=== PATIENT | male | born 1950 | race Hispanic/Latino ===

== ENCOUNTER → 2018-10-15 | Day surgery (SDC) | payer MEDICARE ==
[2018-10-14 12:21] LABS: BASOPHILS % 0.5 % (0.0-1.0); EOSINOPHILS # (AUTO) 0.3 (0.0-0.4); EOSINOPHILS % 3.5 % (0.0-6.0); HEMATOCRIT 31.8 % (38.2-49.6); HEMOGLOBIN 10.3 g/dL (14.0-18.0); LYMPHOCYTES # (AUTO) 0.9 (1.0-3.2); LYMPHOCYTES % 10.9 % (18.0-39.1); MEAN CORPUSCULAR HEMOGLOBIN 28.7 pg (28-32); MEAN CORPUSCULAR HGB CONC 32.4 g/dL (31-35); MEAN CORPUSCULAR VOLUME 88.6 fL (81-99); MONOCYTES # (AUTO) 0.7 (0.2-0.8); NEUTROPHILS # (AUTO) 5.9 (2.1-6.9); NEUTROPHILS % 75.6 % (38.7-80.0); PLATELET COUNT 138 x10e3/uL (140-360); RED BLOOD COUNT 3.59 x10e6/uL (4.3-5.7); RED CELL DISTRIBUTION WIDTH 12.1 % (11.7-14.4)
--- NOTE | 2018-10-14 12:48 | Diagnostic Imaging Report ---
EXAMINATION: CHEST 2 VIEWS INDICATION: Preoperative for circumcision COMPARISON: None FINDINGS: PA and lateral views TUBES and LINES: AICD lead terminates in the right ventricle. LUNGS: Lungs are well inflated. There is no evidence of pneumonia or pulmonary edema. PLEURA: No pleural effusion or pneumothorax. HEART AND MEDIASTINUM: The heart is enlarged. There is mild aortic ectasia with calcifications of the arch. BONES AND SOFT TISSUES: No focal osseous lesions. Mild degenerative changes of the spine. Soft tissues are unremarkable. UPPER ABDOMEN: No free air under the diaphragm. IMPRESSION: Cardiomegaly without vascular congestion. No acute pulmonary process. Signed by: Dr. Brigido Posey MD on 10/14/2018 12:45 PM
[2018-10-14 13:10] LABS: ANION GAP 12.1 mmol/L (8-16); CALCIUM 9.2 mg/dL (8.4-10.2); CREATININE, SERUM 2.19 mg/dL (0.72-1.25); POTASSIUM 4.1 mmol/L (3.5-5.1)
[~2018-10-15] MED LIST: ASPIRIN325 MG PO; BUPIVACAINE 0.25% 30ML SDV INJ ONE; CAPTOPRIL25 MG PO; CEFTRIAXONE SOD 1 GM VIAL ONE; COREG12.5 MG; DEXILANT60 MG; FENTANYL CITRATE/PF 100MCG/2 ML INJ ONE; FERROUS SULFAT325 MG; GABAPENTIN400 MG PO; HYDRALAZINE HCL25 MG PO; ISOSORBIDE1 GM; KETAMINE HCL INJ 50 MG/ML 10 ML VIAL ONE; LASIX40 MG PO; LIDOCAINE HCL 2% LOCAL INJ 5 ML SDV VIAL INJ ONE; MULTI-VITAMIN1 EACH; NORVASC5 MG PO; PLAVIX75 MG PO; PROPOFOL IV EMULSION 10 MG/ML 20 ML VIAL ONE; SEVOFLURANE INHAL SOLN 250 ML PEN BTL ONE; SIMVASTATIN40 MG PO; TRAJENTA; VITAMIN D1000 UNI1 PO
--- OUTSIDE RECORDS SUMMARY | 2018-10-15 06:58 | XMS REPORT | Clinical Summary ---
Author Author [facility] Address Unknown Phone Unavailable Care Team Providers Care Blueprint Clerk Name Role Phone Sharpless PCP Allergies No Known Allergies Medications End Date Status Medication Sig Dispensed Refills Start Date Active aspirin 325 MG Take 325 mg 0 tabletIndications: Stroke by mouth (HCC) daily. Active multivitamin Take 1 tablet 0 tabletIndications: by mouth Diabetes (HCC) daily. Active Vitamin D 1,000 unit Take 2,000 0 CapIndications: Diabetes Units by (HCC) mouth. Takes 2 Active simvastatin (ZOCOR) 40 MG Take 1 tablet 90 tablet 3 tabletIndications: (40 mg total) 5 Hyperlipidemia by mouth nightly. Active carvedilol (COREG) 25 MG Take 25 mg by 0 tablet mouth 2 (two) 5 times daily. Active ferrous sulfate 325 (65 Take 325 mg 0 FE) MG tablet by mouth 2 (two) times daily. Active hydrALAZINE (APRESOLINE) Take 100 mg 0 08/24/ 100 MG tablet by mouth 5 every 8 (eight) hours . Active dexlansoprazole 60 mg Take 60 mg by 0 capsule mouth daily. Active clopidogrel (PLAVIX) 75 Take 75 mg by 0 02/13/ mg tablet mouth . 6 Active gabapentin (NEURONTIN) Take 1,200 mg 0 800 MG tablet by mouth daily Taken in pm. Active captopril (CAPOTEN) 12.5 Take 1 tablet 180 tablet 3 09/22/201 MG tablet (12.5 mg 7 total) by mouth 3 (three) times daily. Active linagliptin 5 mg Take 5 mg by 0 TabIndications: type 2 mouth daily. diabetes mellitus 10/20/2018 Active amLODIPine (NORVASC) 10 Take 1 tablet 30 tablet 11 MG tablet (10 mg total) 7 by mouth daily. 10/20/2018 Active isosorbide dinitrate Take 2 180 tablet 11 (ISORDIL) 20 MG tablet tablets (40 7 mg total) by mouth 3 (three) times daily. 09/15/2018 furosemide (LASIX) 40 MG Take 1 tablet 20 tablet 0 tablet (40 mg total) 7 by mouth 2 (two) times daily. 10/20/2017 Discontinued isosorbide dinitrate Take 1 tablet 90 tablet 11 (ISORDIL) 40 MG tablet (40 mg total) 7 by mouth 3 (three) times daily. 10/20/2017 Discontinued amLODIPine (NORVASC) 5 MG Take 1 tablet 90 tablet 1 tablet (5 mg total) 7 by mouth daily for 90 days. 03/25/2018 acetaminophen-codeine Take 1 tablet 20 tablet 0 (TYLENOL #3) 300-30 mg by mouth 8 per tablet every 4 (four) hours as needed for up to 10 days. Max Daily Amount: 6 tablets 05/14/2018 clindamycin (CLEOCIN) 300 Take 1 21 capsule 0 MG capsule capsule (300 8 mg total) by mouth 3 (three) times daily for 7 days. 05/17/2018 acetaminophen-codeine Take 1-2 15 tablet 0 (TYLENOL #3) 300-30 mg tablets by 8 per tablet mouth every 6 (six) hours as needed for Pain for up to 10 days. Max Daily Amount: 8 tablets Active Problems Patient Care Coordination Note Imaging Workup & Echocardiography: Coronary angiography 2011 There was 90% LAD lesion post 2nd diagonal and small diffusely diseased LAD. It was also diffusely diseased. Left circumflex an 80% lesion, post 3rd obtuse marginal branch. Distal circumflex was totally occluded. Right coronary artery was also small and had a 90% lesion. Considering anatomy of the patient which was not suitable for re-vascularization, TTE 02/2016 LV: Left ventricle is mild to moderately enlarged by systolic diameter.Mild concentric left ventricular hypertrophy. Leftventricular systolic function is moderately depressed. EstimatedLV EF is 30-35%. Remaining segments are hypokinetic.Left ventricular diastolic function is abnormal(grade 3 - restrictive filling). Akinetic inferior andseptal wall motion. RV: Right ventricle size is normal. Right ventricular hypertrophyis mild. A pacemaker wire was visualized in rightventricle . LA: Left atrium is severely dilated by LA volume index. RA: Right atrial size is moderately enlarged. BEBO: No evidence of pericardial effusion. AO: Aortic root is normal in size. Ascending aorta is normal in size. SVn:Estimated RAP: 5-10 mmHg. AV: Aortic valve leaflets open well. Mild thickening of aortic valveleaflets. Mild aortic regurgitation. MV: Mild mitral regurgitation. Calcified submitral apparatus. PV: Pulmonic valve not well visualized. Mild pulmonic regurgitation. TV: Tricuspid valve not well visualized. Mild tricuspid regurgitation.The RVSP/Peak pulmonary artery systolic pressureis estimated to be approx.40-45 mmHg, assuming RAP of5-10 mmHg. Left Ventricle LVIDd5.8 cm (3.6-5.2) LV EF BP35 % LVIDs4.8 cm (2.3-3.9) LVESV BP 133 cc LVEDV BP 204 ccLV SV BP71 cc TTE 09/09/17 The LV endocardium is adequately visualized. The left ventricle is chamber size (by vol index) is severely enlarged (male - LVED vol >100ml/m2). No evidence of LV hypertrophy. The following segment(s) appear akinetic: inferior wall . The other segments are moderately hypokinetic. Global LV systolic function moderately reduced . LVEF by Salazar's method of disk assessment is moderately reduced (35-39%) . The LVEF was measured using Salazar's bi-plane method of disk . Degree of diastolic dysfunction (LAP assessment) is inconclusive due to mitral annular calcification . A trivial pericardial effusion is present . The estimated RA pressure by IVC dynamics 5-10mmHg . Unable to estimate peak systolic PA pressure; inadequate TR velocity signal. Problem Noted Date Chronic combined systolic and diastolic CHF (congestive heart failure) 09/08/2017 History of CVA (cerebrovascular accident) 07/23/2016 Hypogonadism in male 03/15/2016 Last Assessment & Plan: We went over the pros and cons of hormone replacement and a DEXA scan today. We will continue to help him with monitoring of his bone health and aid with supplemental treatments for his bone health. We discussed Vitamin D (400 - 800 IU daily) and calcium supplements (1200mg/day) as options today. Regarding risks of testosterone supplementation we discussed it reducing his own endogenous testicular function as well as possibly being linked to cardiovascular disease, DVTs, BPH, and prostate cancer among other potential side effects. We also discussed bisphosphonates, calcitonin, and SERMs as therapeutic options for any discovered low bone mineral density. Phimosis 03/08/2016 Last Assessment & Plan: Diabetic with phimotic, un-retractable foreskin. We again discussed a circumcision today- he asked for another opinion regarding his cardiac health as he was advised to have a stress test. The risks, benefits, and alternatives of a circumcision were discussed with the patient in detail today. The risks were explained to the patient to include, but not be limited to, infection, bleeding, urethral injury, decreased or increased penile sensation, and poor wound healing with scarring and or keloids. He knows that he is not to perform any heavy lifting or have sexual intercourse for 4-6 weeks to prevent injury to his wound. He understands he will be able to take off his dressing in 48 hours and shower accordingly. He also knows he may have altered sensation or perception of sensation of his glans after a circumcision. He knows the frenulum will be cut. The patient has a phimotic foreskin and would like to have the entire foreskin removed. He was given the opportunity to ask questions and has elected to have the circumcision. He fully understands what this surgery entails and what would be his less invasive options. Impotence of organic origin 03/08/2016 Last Assessment & Plan: We went over treatment options for erectile dysfunction today including PDE-5 inhibitorrs, intraurethral alprostadil (MUSE), Penile injections, vacuum pumps, and a penile prosthesis. We also discussed comorbid conditions that often accompany ED- and screening for cardiac disease, HTN, hypogonadism, diabetes. Naive to PDE-5 inhibitors; would like to try them. BPH (benign prostatic hyperplasia) 03/08/2016 Last Assessment & Plan: Last PSA in 2011 was 3.0 Patient is advised of the following nonsurgical options for BPH associated LUTS lower urinary tract symptoms.) These include selective alpha blockers, 5 alpha reductase inhibitors, and anticholinergics. Alpha blockers such as Rapaflo, Flomax, Uroxatral, Hytrin, or Cardura at titrated doses will relax some of the smooth muscle in the prostate and subsequently relax the channel to improve voiding and relieve symptoms such as frequency, urgency and obstructive symptoms. This can occur within days of starting treatment. 5 alpha reductase inhibitors such as Proscar and Avodart shrink prostate gland tissue and can improve voiding once this tissue has receded. This usually takes 3 to 6 months but if successful it is very durable. Notably Proscar can decrease the PSA by about 50 percent which resets the baseline. Voiding improvement is more frequently seen in larger prostates such as > 40 grams tissue. PDE-5 inhibitors can improve the QOLS with BPH although the mechanism is not clear. Anticholinergics and Beta-3 agonists can blunt some of the bladder irritability. If taken at low doses, this can improve symptoms without causing urinary retention, constipation, dry mouth, or exacerbation of glaucoma. Surgical options include thermotherapy options, TUIP, Green light laser vaporization, (monopolar and bipolar) TURP, and holmium laser ablation and/or enucleation. Thermotherapy includes microwave, water induced thermotherapy, needle ablation thermotherapy, and to go laser. All of these can improve voiding symptoms. Incontinence and impotence are rare however, retrograde ejaculation is common. Success rates for improving bladder related symptoms are around 60 to 70 percent and somewhat lower than compared to TURP. There can also be prolonged burning and irritative symptoms for up to 3 months after thermotherapy procedures. Patrick catheter is usually required for 3 to 5 days. Some of these procedures can be done with local anesthesia. TUIP opens the channel and can promptly give symptomatic relief with minimal side effects. This can be done outpatient and require only 1 to 3 days of postop catheterization. Risks include incontinence less than 1 percent and retrograde ejaculation which is also a lower risk compared to term. The risk of impotence is extremely low with this procedure. TUIP does not eliminate tissue volume and is better utilized in small to medium prostates. Transurethral resection of the prostate with the resectoscope loop or VaporTrode eliminates obstructing tissue. Hematuria risk is low but present. Patrick catheter is usually needed for an overnight stay. The risk of incontinence is around 1 percent, impotence risk is 5 percent, and retrograde ejaculation risk is 80 percent with TURP. Essential hypertension 08/28/2015 KATHIE (obstructive sleep apnea) 06/29/2015 CAD (coronary artery disease) 05/26/2015 AICD (automatic cardioverter/defibrillator) present 05/26/2015 Anemia 05/26/2015 CKD (chronic kidney disease) stage 3, GFR 30-59 ml/min 05/26/2015 Last Assessment & Plan: Improved as seen on his recent labs. He is considering a circumcision. Peripheral vascular disease 05/04/2013 Neuropathy due to secondary diabetes 05/04/2013 Hypertension 08/03/2012 Hyperlipidemia 08/03/2012 Subclavian arterial stenosis 05/21/2012 Vertebral artery stenosis 07/10/2010 DM (diabetes mellitus), type 2, uncontrolled Encounters Care Team Description Date Type Specialty Tobin Herring MD 09/29/2018 Hospital Research Encounter 07/06/2018 Hospital Research Encounter 07/02/2018 Hospital Research Encounter Prasanth Gaspar MD Other closed fracture of distal end of right fibula, initial encounter (Primary Dx); Cellulitis of right lower extremity; Essential hypertension; Controlled type 2 diabetes mellitus without complication, without long-term current use of insulin (HCC) 05/07/2018 Emergency Emergency Medicine Tobin Herring MD 04/03/2018 Orders Only Pharmacy Tobin Herring MD Research study patient (Primary Dx) 04/01/2018 Orders Only Research Tobin Herring MD 03/31/2018 Orders Only Research Howard Martinez MD Left foot pain (Primary Dx); Hyperglycemia; History of CVA (cerebrovascular accident); Hypogonadism in male 03/15/2018 Emergency Emergency Medicine Tobin Herring MD 03/04/2018 Hospital Research Encounter Tobin Herring MD 02/04/2018 Hospital Research Encounter Kt Larsen RN 02/04/2018 Orders Only Research Tobin Herring MD 01/07/2018 Hospital Oncology Encounter 01/01/2018 Hospital Research Encounter Kt Larsen RN Chronic diastolic congestive heart failure (HCC) (Primary Dx) 01/01/2018 Orders Only Research Tenisha Varma MD Chronic combined systolic and diastolic heart failure (HCC) (Primary Dx); Ischemic cardiomyopathy; Mixed hyperlipidemia; Type 2 diabetes mellitus with complication, unspecified watermaster insulin use status (HCC); CKD (chronic kidney disease) stage 3, GFR 30-59 ml/min; Coronary artery disease involving [place] coronary artery of [place] heart without angina pectoris; Peripheral vascular disease (HCC) 12/29/2017 Office Visit Transplant Merline Cruz 12/26/2017 Telephone Transplant Tenisha Varma MD Chronic combined systolic and diastolic heart failure (HCC) (Primary Dx); Ischemic cardiomyopathy; Mixed hyperlipidemia; Uncontrolled type 2 diabetes mellitus with complication, unspecified long-term insulin use status (HCC); CKD (chronic kidney disease) stage 3, GFR 30-59 ml/min; Essential hypertension; Peripheral vascular disease (HCC); KATHIE (obstructive sleep apnea); AICD (automatic cardioverter/defibrillator) present 10/20/2017 Office Visit Transplant after 10/14/2017 Immunizations Name Dates Previously Given Next Due Influenza TIV (IM) 12/01/2013, 09/02/2011 Influenza Three-TIV PF 08/28/2015 4+YRS Influenza Three-TIV PF 5+ 09/09/2017 YR Pneumococcal 09/09/2017, 09/02/2011 Polysaccharide (Pneumovax) Family History Medical History Relation Name Comments Diabetes Father type 2 Heart disease Father Hypertension Father Cancer Mother Diabetes Sister type 2 Prostate cancer Neg Hx Urolithiasis Neg Hx Relation Name Status Comments Brother 3 Alive Daughter 2 Alive Father Mother Sister Alive Sister 3 Alive Son Alive Social History Date Tobacco Use Types Packs/Day Years Used Quit: 08/03/2007 Former Smoker Smokeless Tobacco: Never Used Tobacco Cessation: Counseling Given: No Alcohol Use Drinks/Week oz/Week Comments No Sex Assigned at Date Recorded Not on file Industry Job Start Date Occupation Not on file Not on file Not on file Travel End Travel History Travel Start No recent travel history available. Last Filed Vital Signs Time Taken Vital Sign Reading 05/07/2018 10:09 AM CDT Blood Pressure 128/49 05/07/2018 10:09 AM CDT Pulse 64 05/07/2018 8:59 AM CDT Temperature 36.7 C (98 F) 05/07/2018 10:09 AM CDT Respiratory Rate 18 05/07/2018 10:09 AM CDT Oxygen Saturation 96% - Inhaled Oxygen - Concentration 05/07/2018 8:59 AM CDT Weight 83.9 kg (185 lb) 05/07/2018 8:59 AM CDT Height 165.1 cm (5' 5") 05/07/2018 8:59 AM CDT Body Mass Index 30.79 Plan of Treatment Health Maintenance Due Date Last Done Comments INFLUENZA VACCINE 08/17/2018 09/09/2017, 08/28/2015 Procedures Comments Procedure Name Priority Date/Time Associated Diagnosis HEMOGLOBIN Routine 04/03/2018 Research study patient 9:33 AM CDT BILIRUBIN, TOTAL AND Routine 04/03/2018 Research study patient DIRECT 9:33 AM CDT ALT (SGPT) Routine 04/03/2018 Research study patient 9:33 AM CDT AST (SGOT) Routine 04/03/2018 Research study patient 9:33 AM CDT BUN AND CREATININE Routine 04/03/2018 Research study patient 9:33 AM CDT POTASSIUM Routine 04/03/2018 Research study patient 9:33 AM CDT SODIUM Routine 04/03/2018 Research study patient 9:33 AM CDT POCT-GLUCOSE METER Routine 03/15/2018 3:06 PM CDT BASIC METABOLIC PANEL (7) STAT 03/15/2018 1:06 PM CDT KETONE, BLOOD STAT 03/15/2018 1:01 PM CDT CBC W/PLT COUNT & AUTO STAT 03/15/2018 DIFFERENTIAL 12:54 PM CDT CBC W/PLT COUNT & AUTO STAT 03/15/2018 DIFFERENTIAL 12:54 PM CDT XR FOOT LEFT 3 VIEW STAT 03/15/2018 12:33 PM CDT POCT-GLUCOSE METER Routine 03/15/2018 12:24 PM CDT BUN AND CREATININE Today 01/01/2018 Chronic diastolic 9:43 AM [employer]IEF [employer]NALYTICS OFFICER congestive heart failure (HCC) B-TYPE NATRIURETIC FACTOR Today 01/01/2018 Chronic diastolic (BNP) 9:42 AM CHIEF ANALYTICS OFFICER congestive heart failure (HCC) ALT (SGPT) Today 01/01/2018 Chronic diastolic 9:42 AM CHIEF ANALYTICS OFFICER congestive heart failure (HCC) AST (SGOT) Today 01/01/2018 Chronic diastolic 9:42 AM CHIEF ANALYTICS OFFICER congestive heart failure (HCC) BILIRUBIN, TOTAL AND Today 01/01/2018 Chronic diastolic DIRECT 9:42 AM CHIEF ANALYTICS OFFICER congestive heart failure (HCC) CREATINE KINASE (CK) Today 01/01/2018 Chronic diastolic 9:42 AM CHIEF ANALYTICS OFFICER congestive heart failure (HCC) POTASSIUM Today 01/01/2018 Chronic diastolic 9:42 AM CHIEF ANALYTICS OFFICER congestive heart failure (HCC) SODIUM Routine 01/01/2018 Chronic diastolic 9:42 AM CHIEF ANALYTICS OFFICER congestive heart failure (HCC) CBC W/PLT COUNT & AUTO STAT 12/29/2017 Ischemic cardiomyopathy DIFFERENTIAL 10:31 AM CHIEF ANALYTICS OFFICER Chronic combined systolic and diastolic heart failure (HCC) Mixed hyperlipidemia Type 2 diabetes mellitus with complication, unspecified long-term insulin use status (HCC) CKD (chronic kidney disease) stage 3, GFR 30-59 ml/min B-TYPE NATRIURETIC FACTOR STAT 12/29/2017 Ischemic cardiomyopathy (BNP) 10:31 AM CHIEF ANALYTICS OFFICER Chronic combined systolic and diastolic heart failure (HCC) Mixed hyperlipidemia Type 2 diabetes mellitus with complication, unspecified watermaster insulin use status (HCC) CKD (chronic kidney disease) stage 3, GFR 30-59 ml/min BASIC METABOLIC PANEL (7) STAT 12/29/2017 Ischemic cardiomyopathy 10:31 AM CHIEF ANALYTICS OFFICER Chronic combined systolic and diastolic heart failure (HCC) Mixed hyperlipidemia Type 2 diabetes mellitus with complication, unspecified long-term insulin use status (HCC) CKD (chronic kidney disease) stage 3, GFR 30-59 ml/min CBC W/PLT COUNT & AUTO STAT 12/29/2017 Ischemic cardiomyopathy DIFFERENTIAL 10:31 AM CHIEF ANALYTICS OFFICER Chronic combined systolic and diastolic heart failure (HCC) Mixed hyperlipidemia Type 2 diabetes mellitus with complication, unspecified long-term insulin use status (HCC) CKD (chronic kidney disease) stage 3, GFR 30-59 ml/min CBC W/PLT COUNT & AUTO STAT 10/20/2017 Ischemic cardiomyopathy DIFFERENTIAL 9:46 AM CHIEF ANALYTICS OFFICER Chronic combined systolic and diastolic heart failure (HCC) Mixed hyperlipidemia Uncontrolled type 2 diabetes mellitus with complication, unspecified long-term insulin use status (HCC) CKD (chronic kidney disease) stage 3, GFR 30-59 ml/min B-TYPE NATRIURETIC FACTOR STAT 10/20/2017 Ischemic cardiomyopathy (BNP) 9:46 AM CHIEF ANALYTICS OFFICER Chronic combined systolic and diastolic heart failure (HCC) Mixed hyperlipidemia Uncontrolled type 2 diabetes mellitus with complication, unspecified long-term insulin use status (HCC) CKD (chronic kidney disease) stage 3, GFR 30-59 ml/min BASIC METABOLIC PANEL (7) STAT 10/20/2017 Ischemic cardiomyopathy 9:46 AM CHIEF ANALYTICS OFFICER Chronic combined systolic and diastolic heart failure (HCC) Mixed hyperlipidemia Uncontrolled type 2 diabetes mellitus with complication, unspecified watermaster insulin use status (HCC) CKD (chronic kidney disease) stage 3, GFR 30-59 ml/min CBC W/PLT COUNT & AUTO STAT 10/20/2017 Ischemic cardiomyopathy DIFFERENTIAL 9:46 AM CHIEF ANALYTICS OFFICER Chronic combined systolic and diastolic heart failure (HCC) Mixed hyperlipidemia Uncontrolled type 2 diabetes mellitus with complication, unspecified long-term insulin use status (HCC) CKD (chronic kidney disease) stage 3, GFR 30-59 ml/min after 10/14/2017 Results * BUN and Creatinine (04/03/2018 9:33 AM CDT) Only the most recent of 2 results within the time period is included. BUN 62 (H) 7 - 21 mg/dL [facility] Creatinine 2.82 (H) 0.57 - 1.25 mg/dL [facility] EGFR 23Comment: ESTIMATED GFR IS mL/min/1.73 sq m [facility] NOT ACCURATE CREATININE [facility] CLEARANCE IN PREDICTING GLOMERULAR FILTRATION RATE. ESTIMATED GFR IS NOT APPLICABLE FOR DIALYSIS PATIENTS. Specimen Blood Narrative Performed At 12 week f/u [facility] to be drawn and resulted in [facility] on 04/01/2018 [facility] 12 week f/u [facility] to be drawn and resulted in [facility] on 04/01/2018 [facility] 12 week f/u [facility] to be drawn and resulted in [facility] on 04/01/2018 12 week f/u [facility] to be drawn and resulted in [facility] on 04/01/2018 12 week f/u [facility] to be drawn and resulted in [facility] on 04/01/2018 12 week f/u [facility] to be drawn and resulted in [facility] on 04/01/2018 Performing Organization Address [facility]/[place] [address] [facility] * Hemoglobin (04/03/2018 9:33 AM CDT) Hemoglobin 10.4 (L) 13.7 - 17.5 GM/DL [facility] Specimen Blood Narrative Performed At 12 week f/u labs for [facility] Performing Organization Address City/[facility] [place] [address] [facility] * Bilirubin, total and direct (04/03/2018 9:33 AM CDT) Only the most recent of 2 results within the time period is included. Total Bilirubin 0.4 0.2 - 1.2 mg/dL [facility] Bilirubin, Direct 0.1 0.1 - 0.5 mg/dL [facility] Specimen Blood Narrative Performed At 12 week f/u [facility] to be drawn and resulted in [facility] on 04/01/2018 [facility] 12 week f/u [facility] to be drawn and resulted in [facility] on 04/01/2018 [facility] 12 week f/u [facility] to be drawn and resulted in [facility] on 04/01/2018 12 week f/u [facility] to be drawn and resulted in [facility] on 04/01/2018 12 week f/u [facility] to be drawn and resulted in [facility] on 04/01/2018 12 week f/u [facility] to be drawn and resulted in [facility] on 04/01/2018 Performing Organization Address [facility] Phone Number [address] [address] [facility] * ALT (SGPT) (04/03/2018 9:33 AM CDT) Only the most recent of 2 results within the time period is included. ALT 16 6 - 55 U/L [facility] Specimen Blood Narrative Performed At 12 week f/u [facility] to be drawn and resulted in [facility] on 04/01/2018 [facility] 12 week f/u [facility] to be drawn and resulted in [facility] on 04/01/2018 [facility] 12 week f/u [facility] to be drawn and resulted in [facility] on 04/01/2018 12 week f/u [facility] to be drawn and resulted in [facility] on 04/01/2018 12 week f/u [facility] to be drawn and resulted in [facility] on 04/01/2018 12 week f/u [facility] to be drawn and resulted in [facility] on 04/01/2018 Performing Organization Address [facility] Phone Number [place] [phone] [place] [address] [facility] * AST (SGOT) (04/03/2018 9:33 AM CDT) Only the most recent of 2 results within the time period is included. AST 13 5 - 34 U/L [facility] Specimen Blood Narrative Performed At 12 week f/u [facility] to be drawn and resulted in [facility] on 04/01/2018 [facility] 12 week f/u [facility] to be drawn and resulted in [facility] on 04/01/2018 [facility] 12 week f/u [facility] to be drawn and resulted in [facility] on 04/01/2018 12 week f/u [facility] to be drawn and resulted in [facility] on 04/01/2018 12 week f/u [facility] to be drawn and resulted in [facility] on 04/01/2018 12 week f/u [facility] to be drawn and resulted in [facility] on 04/01/2018 Performing Organization Address [facility] Phone Number [address] [address] [facility] * Sodium (04/03/2018 9:33 AM CDT) Only the most recent of 2 results within the time period is included. Sodium 138 136 - 145 meq/L [facility] Specimen Blood Narrative Performed At 12 week f/u [facility] to be drawn and resulted in [facility] on 04/01/2018 [facility] 12 week f/u [facility] to be drawn and resulted in [facility] on 04/01/2018 [facility] 12 week f/u [facility] to be drawn and resulted in [facility] on 04/01/2018 12 week f/u [facility] to be drawn and resulted in [facility] on 04/01/2018 12 week f/u [facility] to be drawn and resulted in [facility] on 04/01/2018 12 week f/u [facility] to be drawn and resulted in [facility] on 04/01/2018 Performing Organization Address [facility] Phone Number [address] [address] [facility] * Potassium (04/03/2018 9:33 AM CDT) Only the most recent of 2 results within the time period is included. Potassium 5.1 3.5 - 5.1 meq/L [facility] Specimen Blood Narrative Performed At 12 week f/u [facility] to be drawn and resulted in [facility] on 04/01/2018 [facility] 12 week f/u [facility] to be drawn and resulted in [facility] on 04/01/2018 [facility] 12 week f/u [facility] to be drawn and resulted in [facility] on 04/01/2018 12 week f/u [facility] to be drawn and resulted in [facility] on 04/01/2018 12 week f/u [facility] to be drawn and resulted in [facility] on 04/01/2018 12 week f/u [facility] to be drawn and resulted in [facility] on 04/01/2018 Performing Organization Address City/[facility] Phone Number [facility] [address] [place] [phone] [facility] * POC-Glucose meter (03/15/2018 3:06 PM CDT) Only the most recent of 2 results within the time period is included. POC-Glucose Meter 264 (H)Comment: TESTED AT 70 - 110 mg/dL [address] [address] Specimen Blood Performing Organization Address [facility] Phone Number [address] [phone] [facility] * Basic metabolic panel (Na, K+, Cl, CO2, Glu, Ca, BUN, Cr) (03/15/2018 1:06 PM CDT) Only the most recent of 3 results within the time period is included. Sodium 137 136 - 145 meq/L [facility] Potassium 4.9 3.5 - 5.1 meq/L [facility] Chloride 103 98 - 107 meq/L [facility] CO2 25 22 - 29 meq/L [facility] BUN 56 (H) 7 - 21 mg/dL [facility] Creatinine 2.58 (H) 0.57 - 1.25 mg/dL [facility] Glucose 440 (HH) 70 - 105 mg/dL [facility] Calcium 8.4 8.4 - 10.2 mg/dL [facility] EGFR 25Comment: ESTIMATED GFR IS mL/min/1.73 sq m [facility] NOT ACCURATE CREATININE [facility] CLEARANCE IN PREDICTING GLOMERULAR FILTRATION RATE. ESTIMATED GFR IS NOT APPLICABLE FOR DIALYSIS PATIENTS. Specimen Blood Performing Organization Address City/State/Zipcode Phone Number [facility] [address] [place] [address] [facility] * Ketone, blood (03/15/2018 1:01 PM CDT) Ketones, Blood 0.1 <0.4 mmol/L [facility] Specimen Blood Performing Organization Address City/State/Zipcode Phone Number [facility] [address] [place] [address] [facility] * CBC with platelet count + automated diff (03/15/2018 12:54 PM CDT) Only the most recent of 3 results within the time period is included. WBC 8.1 3.5 - 10.5 K/L [facility] RBC 3.56 (L) 4.63 - 6.08 M/L [facility] Hemoglobin 10.3 (L) 13.7 - 17.5 GM/DL [facility] Hematocrit 30.7 (L) 40.1 - 51.0 % [facility] MCV 86.2 79.0 - 92.2 fL [facility] MCH 28.9 25.7 - 32.2 pg [facility] MCHC 33.6 32.3 - 36.5 GM/DL [facility] RDW 11.6 11.6 - 14.4 % [facility] Platelets 201 150 - 450 K/CU MM [facility] MPV 12.7 (H) 9.4 - 12.4 fL [facility] nRBC 0 0 - 0 /100 WBC [facility] % Neutros 81 % [facility] % Lymphs 6 % [facility] % Monos 9 % [facility] % Eos 2 % [facility] % Baso 1 % [facility] # Neutros 6.52 (H) 1.78 - 5.38 K/L [facility] # Lymphs 0.51 (L) 1.32 - 3.57 K/L [facility] # Monos 0.76 0.30 - 0.82 K/L [facility] # Eos 0.18 0.04 - 0.54 K/L [facility] # Baso 0.04 0.01 - 0.08 K/L [facility] Immature 1 0 - 1 % [facility] Granulocytes-[facility] Specimen Blood Performing Organization Address City/State/Zipcode Phone Number [facility] [address] [place] [address] [facility] * XR foot 3 views left (03/15/2018 12:33 PM CDT) Narrative Performed At FINAL REPORT GE RIS Left foot, three views HISTORY: Trauma COMPARISON: None. IMPRESSION: No acute displaced fracture or dislocation. Vascular calcifications about the foot and ankle. No radiopaque foreign body identified. Signed: Ken Dawn MD Report Verified Date/Time:03/15/2018 13:19:38 Reading Location: [facility] C[address] [place] CT Body Reading Room Procedure Note Interface, External Ris In - 03/15/2018 1:21 PM CDT FINAL REPORT Left foot, three views HISTORY: Trauma COMPARISON: None. IMPRESSION: No acute displaced fracture or dislocation. Vascular calcifications about the foot and ankle. No radiopaque foreign body identified. Signed: Ken Dawn MD Report Verified Date/Time: 03/15/2018 13:19:38 Reading Location: [facility] [id number] CT Body Reading Room Performing Organization Address City/[facility]/Zipcode Phone Number RIS * B-type Natriuretic Factor (BNP) (01/01/2018 9:42 AM CHIEF ANALYTICS OFFICER) Only the most recent of 3 results within the time period is included. BNP 567 (H) 0 - 100 pg/mL [facility] Specimen Blood Performing Organization Address City/State/Zipcode Phone Number [facility] [address] [place], [place] [phone] [facility] * Creatine Kinase (CK) (01/01/2018 9:42 AM CHIEF ANALYTICS OFFICER) Total CK 120 29 - 200 U/L [facility] Specimen Blood Performing Organization Address City/[facility]/Zipcode Phone Number [facility] [address] [place] [address] [facility] after 10/14/2017 Insurance Payer Benefit Subscriber ID Type Phone Address Plan / Group [employer] - MEDICARE [employer] CARE [employer] xxxxxxxx [phone] [address] [place] [address] HMO POS PPO Advance Directives For more information, please contact: [address] [phone] Date Inactivated Comments Code Status Date Activated 06/13/2015 5:20 PM Full Code 06/13/2015 4:53 PM This code status was determined by: Patient 06/13/2015 4:53 PM Full Code 06/09/2015 9:09 PM This code status was determined by: Patient 11/01/2013 2:02 PM All possible means of support including;cardiac massage, mechanical ventilation, and defibrillation will be used to support life. Code ONE 11/01/2013 6:53 AM
--- OUTSIDE RECORDS SUMMARY | 2018-10-15 06:59 | XMS REPORT ---
Author [facility] Address Unknown Phone Unavailable Care Team Providers Care Medical Stenographer Name Role Phone Percy ROD Unavailable Unavailable KELLI GONZALEZ Unavailable Unavailable BEERSLORI Unavailable Unavailable TAIMEH, A ZIAD Unavailable Unavailable MARGARITO, ARIF Unavailable Unavailable Problems This patient has no known problems. Allergies, Adverse Reactions, Alerts This patient has no known allergies or adverse reactions. Medications This patient has no known medications. Results Test Description Test Time Test Comments Text Results Atomic Results Result Comments CHEST 2 VIEWS 2018-10-14 12:44:00 [place] [address] Patient Name: DOC WOOD MR #: [id number] : 1950 Age/Sex: 67/M Req #: [id number] Adm Physician: Ordered by: WYATT ROD MD Report #: [id number] Location: OR Room/Bed: Procedure: [id number] DX/CHEST 2 VIEWS Exam Date: Exam Time: REPORT STATUS: Signed EXAMINATION: CHEST 2 VIEWS INDICATION: Preoperative for circumcision COMPARISON: None FINDINGS: PA and lateral views TUBES and LINES: AICD lead terminates in the right ventricle. LUNGS: Lungs are well inflated. There is no evidence of pneumonia or pulmonary edema. PLEURA: No pleural effusion or pneumothorax. HEART AND MEDIASTINUM: The heart is enlarged. There is mild aortic ectasia with calcifications of the arch. BONES AND SOFT TISSUES: No focal osseous lesions. Mild degenerative changes of the spine. Soft tissues are unremarkable. UPPER ABDOMEN: No free air under the diaphragm. IMPRESSION: Cardiomegaly without vascular congestion. No acute pulmonary process. Signed by: Dr. Rozina Posey MD on 10/14/2018 12:45 PM Dictated By: ORZINA POSEY MD 1245 Transcribed By: DOC on 10/14/18 1245 COPY TO: WYATT ROD MD BUN AND CREATININE 2018-04-03 11:03:00 BLOOD UREA NITROGEN (BEAKER) (test qufw=545) 62 mg/dL 7-21 CREATININE (BEAKER) (test yedy=709) 2.82 mg/dL 0.57-1.25 EGFR (BEAKER) (test eirq=9369) 23 mL/min/1.73 sq m ESTIMATED GFR IS NOT ACCURATE CREATININE CLEARANCE IN PREDICTING GLOMERULAR FILTRATION RATE. ESTIMATED GFR IS NOT APPLICABLE FOR DIALYSIS PATIENTS. 12 week f/u [facility] to be drawn and resulted in [facility] on week f/u [facility] to be drawn and resulted in [facility] on w tetlin f/u [facility] to be drawn and resulted in [facility] on wee k f/u [facility] to be drawn and resulted in [facility] on week f/u [facility] to be drawn and resulted in [facility] on week f/ u [facility] to be drawn and resulted in [facility] on 04/01/2018POTASSIUM 2018-04-03 10:40:00* Test Item Value Reference Range Comments POTASSIUM (BEAKER) (test mswq=968) 5.1 meq/L 3.5-5.1 12 week f/u [facility] to be drawn and resulted in [facility] on week f/u [facility] to be drawn and resulted in [facility] on w tetlin f/u [facility] to be drawn and resulted in [facility] on wee k f/u [facility] to be drawn and resulted in [facility] on week f/u [facility] to be drawn and resulted in [facility] on week f/ u [facility] to be drawn and resulted in [facility] on 04/01/2018SODIUM 2018-04-03 10:40:00* Test Item Value Reference Range Comments SODIUM (BEAKER) (test lgcg=546) 138 meq/L 136-145 12 week f/u [facility] to be drawn and resulted in [facility] on week f/u [facility] to be drawn and resulted in [facility] on w tetlin f/u [facility] to [facility] drawn and resulted in [facility] on wee k f/u [facility] to be drawn and resulted in [facility] on week f/u [facility] to be drawn and resulted in [facility] on week f/ u [facility] to be drawn and resulted in [facility] on 04/01/2018AST (SGOT) 2018-04-03 10:40:00* Test Item Value Reference Range Comments AST (SGOT) (BEAKER) (test pxyu=353) 13 U/L 5-34 12 week f/u [facility] to be drawn and resulted in [facility] on week f/u [facility] to be drawn and resulted in [facility] on w tetlin f/u [facility] to be drawn and resulted in [facility] on wee k f/u [facility] to be drawn and resulted in [facility] on week f/u [facility] to be drawn and resulted in [facility] on week f/ u [facility] to be drawn and resulted in [facility] on 04/01/2018ALT (SGPT) 2018-04-03 10:40:00* Test Item Value Reference Range Comments ALT (SGPT) (BEAKER) (test nmiw=050) 16 U/L 6-55 12 week f/u [facility] to be drawn and resulted in [facility] on week f/u [facility] to be drawn and resulted in [facility] on w tetlin f/u [facility] to be drawn and resulted in [facility] on wee k f/u [facility] to be drawn and resulted in [facility] on week f/u [facility] to be drawn and resulted in [facility] on week f/ u [facility] to be drawn and resulted in [facility] on 04/01/2018BILIRUBIN, TOTAL AND [id number] 10:40:00* Test Item Value Reference Range Comments BILIRUBIN TOTAL (BEAKER) (test qzst=919) 0.4 mg/dL 0.2-1.2 BILIRUBIN DIRECT (BEAKER) (test soma=442) 0.1 mg/dL 0.1-0.5 12 week f/u [facility] to be drawn and resulted in [facility] on week f/u [facility] to be drawn and resulted in [facility] on w tetlin f/u [facility] to be drawn and resulted in [facility] on wee k f/u [facility] to be drawn and resulted in [facility] on week f/u [facility] to be drawn and resulted in [facility] on week f/ u [facility] to be drawn and resulted in [facility] on 04/01/2018HEMOGLOBIN 2018-04-03 10:20:00* Test Item Value Reference Range Comments HEMOGLOBIN (BEAKER) (test jkfp=525) 10.4 GM/DL 13.7-17.5 12 week f/u [facility] for [facility] [id number] 23:13:00* Test Item Value Reference Range Comments POC-GLUCOSE METER (BEAKER) (test nkzj=8582) 264 mg/dL 70-110 TESTED AT [facility] [address] [facility] [address] BASIC METABOLIC [id number] 13:37:00* Test Item Value Reference Range Comments SODIUM (BEAKER) (test wbrg=972) 137 meq/L 136-145 POTASSIUM (BEAKER) (test nnwb=649) 4.9 meq/L 3.5-5.1 CHLORIDE (BEAKER) (test pjrl=988) 103 meq/L 98-107 CO2 (BEAKER) (test mbxb=404) 25 meq/L 22-29 BLOOD UREA NITROGEN (BEAKER) (test avpj=894) 56 mg/dL 7-21 CREATININE (BEAKER) (test iqvt=247) 2.58 mg/dL 0.57-1.25 GLUCOSE RANDOM (BEAKER) (test zjyt=049) 440 mg/dL 70-105 CALCIUM (BEAKER) (test tqpz=577) 8.4 mg/dL 8.4-10.2 EGFR (BEAKER) (test ipoj=2342) 25 mL/min/1.73 sq m ESTIMATED GFR IS NOT ACCURATE CREATININE CLEARANCE IN PREDICTING GLOMERULAR FILTRATION RATE. ESTIMATED GFR IS NOT APPLICABLE FOR DIALYSIS PATIENTS. RAD, FOOT, MIN 3 VIEWS, [id number] 13:19:00Reason for exam:->traumaShould this be performed at the bedside?->NoFINAL REPORT Left foot, three views HISTORY: Trauma COMPARISON: None. IMPRESSION: No acute displaced fracture or dislocation. Vascular calcifications about the foot and ankle. No radiopaque foreign body identified. Signed: Ken Dawn MDReport Verified Date/Time: 03/15/2018 13:19:38 Reading Location: [address] Body Reading Room NE, [id number] 13:12:00* Test Item Value Reference Range Comments KETONES, BLOOD (BEAKER) (test fsbn=3271) 0.1 mmol/L <0.4 CBC W/PLT COUNT & AUTO [id number] 13:04:00* Test Item Value Reference Range Comments WHITE BLOOD CELL COUNT (BEAKER) (test kwdr=260) 8.1 K/ L 3.5-10.5 RED BLOOD CELL COUNT (BEAKER) (test eclm=221) 3.56 M/ L 4.63-6.08 HEMOGLOBIN (BEAKER) (test vqxr=603) 10.3 GM/DL 13.7-17.5 HEMATOCRIT (BEAKER) (test zdyg=738) 30.7 % 40.1-51.0 MEAN CORPUSCULAR VOLUME (BEAKER) (test szwo=079) 86.2 fL 79.0-92.2 MEAN CORPUSCULAR HEMOGLOBIN (BEAKER) (test xkae=348) 28.9 pg 25.7-32.2 MEAN CORPUSCULAR HEMOGLOBIN CONC (BEAKER) (test fhci=200) 33.6 GM/DL 32.3-36.5 RED CELL DISTRIBUTION WIDTH (BEAKER) (test pgaw=376) 11.6 % 11.6-14.4 PLATELET COUNT (BEAKER) (test nnzz=273) 201 K/CU MM 150-450 MEAN PLATELET VOLUME (BEAKER) (test kmsr=906) 12.7 fL 9.4-12.4 NUCLEATED RED BLOOD CELLS (BEAKER) (test sbgq=256) 0 /100 WBC 0-0 NEUTROPHILS RELATIVE PERCENT (BEAKER) (test mrji=699) 81 % LYMPHOCYTES RELATIVE PERCENT (BEAKER) (test kqpx=681) 6 % MONOCYTES RELATIVE PERCENT (BEAKER) (test otso=585) 9 % EOSINOPHILS RELATIVE PERCENT (BEAKER) (test onkw=862) 2 % BASOPHILS RELATIVE PERCENT (BEAKER) (test orge=866) 1 % NEUTROPHILS ABSOLUTE COUNT (BEAKER) (test ikjc=284) 6.52 K/ L 1.78-5.38 LYMPHOCYTES ABSOLUTE COUNT (BEAKER) (test spmv=417) 0.51 K/ L 1.32-3.57 MONOCYTES ABSOLUTE COUNT (BEAKER) (test qecp=399) 0.76 K/ L 0.30-0.82 EOSINOPHILS ABSOLUTE COUNT (BEAKER) (test cunw=554) 0.18 K/ L 0.04-0.54 BASOPHILS ABSOLUTE COUNT (BEAKER) (test wdoa=212) 0.04 K/ L 0.01-0.08 IMMATURE GRANULOCYTES-RELATIVE PERCENT (BEAKER) (test flwz=0522) 1 % 0-1 POCT-GLUCOSE [id number] 12:26:00* Test Item Value Reference Range Comments POC-GLUCOSE METER (BEAKER) (test yzwq=5860) 498 mg/dL 70-110 TESTED AT [facility] [address] [facility] [address] BUN AND [id number] 10:51:00* Test Item Value Reference Range Comments BLOOD UREA NITROGEN (BEAKER) (test ezyc=317) 53 mg/dL 7-21 CREATININE (BEAKER) (test hbnd=657) 2.48 mg/dL 0.57-1.25 EGFR (BEAKER) (test ukrc=9632) 26 mL/min/1.73 sq m ESTIMATED GFR IS NOT ACCURATE CREATININE CLEARANCE IN PREDICTING GLOMERULAR FILTRATION RATE. ESTIMATED GFR IS NOT APPLICABLE FOR DIALYSIS PATIENTS. BILIRUBIN, TOTAL AND [id number] 10:51:00* Test Item Value Reference Range Comments BILIRUBIN TOTAL (BEAKER) (test kzlm=330) 0.4 mg/dL 0.2-1.2 BILIRUBIN DIRECT (BEAKER) (test grws=693) 0.2 mg/dL 0.1-0.5 ALT (SGPT)2018-01-01 10:51:00* Test Item Value Reference Range Comments ALT (SGPT) (BEAKER) (test mysg=787) 17 U/L 6-55 AST (SGOT)2018-01-01 10:51:00* Test Item Value Reference Range Comments AST (SGOT) (BEAKER) (test sshm=640) 14 U/L 5-34 CREATINE KINASE (CK)2018-01-01 10:51:00* Test Item Value Reference Range Comments CREATINE KINASE TOTAL (BEAKER) (test omay=321) 120 U/L 29-200 [id number] 10:45:00* Test Item Value Reference Range Comments POTASSIUM (BEAKER) (test jkxd=584) 5.2 meq/L 3.5-5.1 [id number] 10:45:00* Test Item Value Reference Range Comments SODIUM (BEAKER) (test ygww=949) 142 meq/L 136-145 B-TYPE NATRIURETIC FACTOR (BNP)2018-01-01 10:42:00* Test Item Value Reference Range Comments B-TYPE NATRIURETIC PEPTIDE (BEAKER) (test qfsn=432) 567 pg/mL 0-100 B-TYPE NATRIURETIC FACTOR (BNP)2017-12-29 11:26:00* Test Item Value Reference Range Comments B-TYPE NATRIURETIC PEPTIDE (BEAKER) (test iira=618) 640 pg/mL 0-100 BASIC METABOLIC [id number] 11:25:00* Test Item Value Reference Range Comments SODIUM (BEAKER) (test fssm=557) 140 meq/L 136-145 POTASSIUM (BEAKER) (test hygp=924) 5.4 meq/L 3.5-5.1 CHLORIDE (BEAKER) (test aych=777) 105 meq/L 98-107 CO2 (BEAKER) (test eilc=864) 26 meq/L 22-29 BLOOD UREA NITROGEN (BEAKER) (test awfl=397) 45 mg/dL 7-21 CREATININE (BEAKER) (test uczl=158) 2.24 mg/dL 0.57-1.25 GLUCOSE RANDOM (BEAKER) (test slkm=405) 185 mg/dL 70-105 CALCIUM (BEAKER) (test gzxz=018) 9.0 mg/dL 8.4-10.2 EGFR (BEAKER) (test purk=7837) 29 mL/min/1.73 sq m ESTIMATED GFR IS NOT ACCURATE CREATININE CLEARANCE IN PREDICTING GLOMERULAR FILTRATION RATE. ESTIMATED GFR IS NOT APPLICABLE FOR DIALYSIS PATIENTS. CBC W/PLT COUNT & AUTO [id number] 10:53:00* Test Item Value Reference Range Comments WHITE BLOOD CELL COUNT (BEAKER) (test xyrh=182) 7.3 K/ L 3.5-10.5 RED BLOOD CELL COUNT (BEAKER) (test gnbp=028) 3.57 M/ L 4.63-6.08 HEMOGLOBIN (BEAKER) (test gytz=029) 10.2 GM/DL 13.7-17.5 HEMATOCRIT (BEAKER) (test xlir=015) 31.3 % 40.1-51.0 MEAN CORPUSCULAR VOLUME (BEAKER) (test lidj=480) 87.7 fL 79.0-92.2 MEAN CORPUSCULAR HEMOGLOBIN (BEAKER) (test cklb=823) 28.6 pg 25.7-32.2 MEAN CORPUSCULAR HEMOGLOBIN CONC (BEAKER) (test eckf=874) 32.6 GM/DL 32.3-36.5 RED CELL DISTRIBUTION WIDTH (BEAKER) (test sfdi=098) 12.7 % 11.6-14.4 PLATELET COUNT (BEAKER) (test nktq=582) 147 K/CU MM 150-450 MEAN PLATELET VOLUME (BEAKER) (test qdya=424) 12.0 fL 9.4-12.4 NUCLEATED RED BLOOD CELLS (BEAKER) (test jkbk=487) 0 /100 WBC 0-0 NEUTROPHILS RELATIVE PERCENT (BEAKER) (test kvfe=362) 77 % LYMPHOCYTES RELATIVE PERCENT (BEAKER) (test hodx=741) 10 % MONOCYTES RELATIVE PERCENT (BEAKER) (test pddc=726) 9 % EOSINOPHILS RELATIVE PERCENT (BEAKER) (test oaqo=900) 3 % BASOPHILS RELATIVE PERCENT (BEAKER) (test pila=665) 0 % NEUTROPHILS ABSOLUTE COUNT (BEAKER) (test xhjh=670) 5.64 K/ L 1.78-5.38 LYMPHOCYTES ABSOLUTE COUNT (BEAKER) (test plrh=999) 0.76 K/ L 1.32-3.57 MONOCYTES ABSOLUTE COUNT (BEAKER) (test hjsy=560) 0.64 K/ L 0.30-0.82 EOSINOPHILS ABSOLUTE COUNT (BEAKER) (test ptce=866) 0.18 K/ L 0.04-0.54 BASOPHILS ABSOLUTE COUNT (BEAKER) (test qbnk=698) 0.03 K/ L 0.01-0.08 IMMATURE GRANULOCYTES-RELATIVE PERCENT (BEAKER) (test zzjj=3714) 1 % 0-1 CBC W/PLT COUNT & AUTO [id number] 10:38:00* Test Item Value Reference Range Comments WHITE BLOOD CELL COUNT (BEAKER) (test fvhp=368) 7.3 K/ L 3.5-10.5 RED BLOOD CELL COUNT (BEAKER) (test ygqf=647) 3.89 M/ L 4.63-6.08 HEMOGLOBIN (BEAKER) (test rvzo=673) 10.8 GM/DL 13.7-17.5 HEMATOCRIT (BEAKER) (test bukd=073) 32.8 % 40.1-51.0 MEAN CORPUSCULAR VOLUME (BEAKER) (test zmhj=044) 84.3 fL 79.0-92.2 MEAN CORPUSCULAR HEMOGLOBIN (BEAKER) (test oqva=704) 27.8 pg 25.7-32.2 MEAN CORPUSCULAR HEMOGLOBIN CONC (BEAKER) (test merj=494) 32.9 GM/DL 32.3-36.5 RED CELL DISTRIBUTION WIDTH (BEAKER) (test usdu=082) 12.3 % 11.6-14.4 PLATELET COUNT (BEAKER) (test degw=677) 145 K/CU MM 150-450 MEAN PLATELET VOLUME (BEAKER) (test njha=170) 12.2 fL 9.4-12.4 NUCLEATED RED BLOOD CELLS (BEAKER) (test vdvc=767) 0 /100 WBC 0-0 NEUTROPHILS RELATIVE PERCENT (BEAKER) (test ztdx=079) 78 % LYMPHOCYTES RELATIVE PERCENT (BEAKER) (test diwv=390) 11 % MONOCYTES RELATIVE PERCENT (BEAKER) (test ohzc=178) 8 % EOSINOPHILS RELATIVE PERCENT (BEAKER) (test ngwu=975) 2 % BASOPHILS RELATIVE PERCENT (BEAKER) (test nijq=231) 1 % NEUTROPHILS ABSOLUTE COUNT (BEAKER) (test bxve=315) 5.70 K/ L 1.78-5.38 LYMPHOCYTES ABSOLUTE COUNT (BEAKER) (test opqg=331) 0.83 K/ L 1.32-3.57 MONOCYTES ABSOLUTE COUNT (BEAKER) (test fmnp=219) 0.58 K/ L 0.30-0.82 EOSINOPHILS ABSOLUTE COUNT (BEAKER) (test pmbk=047) 0.15 K/ L 0.04-0.54 BASOPHILS ABSOLUTE COUNT (BEAKER) (test rzhp=215) 0.04 K/ L 0.01-0.08 IMMATURE GRANULOCYTES-RELATIVE PERCENT (BEAKER) (test nwyb=2361) 0 % 0-1 B-TYPE NATRIURETIC FACTOR (BNP)2017-10-20 10:38:00* Test Item Value Reference Range Comments B-TYPE NATRIURETIC PEPTIDE (BEAKER) (test uhwm=633) 446 pg/mL 0-100 BASIC METABOLIC [id number] 10:35:00* Test Item Value Reference Range Comments SODIUM (BEAKER) (test qmve=554) 140 meq/L 136-145 POTASSIUM (BEAKER) (test wftl=856) 5.0 meq/L 3.5-5.1 CHLORIDE (BEAKER) (test vcwr=514) 103 meq/L 98-107 CO2 (BEAKER) (test rsrl=011) 27 meq/L 22-29 BLOOD UREA NITROGEN (BEAKER) (test amqv=080) 42 mg/dL 7-21 CREATININE (BEAKER) (test dtdo=914) 2.19 mg/dL 0.57-1.25 GLUCOSE RANDOM (BEAKER) (test fmro=017) 192 mg/dL 70-105 CALCIUM (BEAKER) (test tzpl=920) 9.3 mg/dL 8.4-10.2 EGFR (BEAKER) (test vivp=5260) 30 mL/min/1.73 sq m ESTIMATED GFR IS NOT ACCURATE CREATININE CLEARANCE IN PREDICTING GLOMERULAR FILTRATION RATE. ESTIMATED GFR IS NOT APPLICABLE FOR DIALYSIS PATIENTS. BASIC METABOLIC [id number] 12:31:00* Test Item Value Reference Range Comments SODIUM (BEAKER) (test azfd=713) 138 meq/L 136-145 POTASSIUM (BEAKER) (test bljn=601) 5.4 meq/L 3.5-5.1 CHLORIDE (BEAKER) (test glxv=817) 100 meq/L 98-107 CO2 (BEAKER) (test eugx=826) 27 meq/L 22-29 BLOOD UREA NITROGEN (BEAKER) (test akpz=615) 72 mg/dL 7-21 CREATININE (BEAKER) (test dcpp=768) 2.61 mg/dL 0.57-1.25 GLUCOSE RANDOM (BEAKER) (test sezy=352) 425 mg/dL 70-105 CALCIUM (BEAKER) (test rkuj=046) 9.2 mg/dL 8.4-10.2 EGFR (BEAKER) (test htfe=0760) 25 mL/min/1.73 sq m ESTIMATED GFR IS NOT ACCURATE CREATININE CLEARANCE IN PREDICTING GLOMERULAR FILTRATION RATE. ESTIMATED GFR IS NOT APPLICABLE FOR DIALYSIS PATIENTS. HEMOGLOBIN [id number] 11:44:00* Test Item Value Reference Range Comments HEMOGLOBIN A1C (BEAKER) (test ooik=845) 7.9 % 4.3-6.1 TSH/FREE T4 IF [id number] 11:06:00* Test Item Value Reference Range Comments THYROID STIMULATING HORMONE (BEAKER) (test uweu=315) 1.74 uIU/mL 0.35-4.94 [id number] 10:46:00* Test Item Value Reference Range Comments PREALBUMIN (BEAKER) (test pxbt=764) 34 mg/dL 14-45 B-TYPE NATRIURETIC FACTOR (BNP)2017-09-22 10:40:00* Test Item Value Reference Range Comments B-TYPE NATRIURETIC PEPTIDE (BEAKER) (test deca=356) 1142 pg/mL 0-100 URIC [id number] 10:24:00* Test Item Value Reference Range Comments URIC ACID (BEAKER) (test tsjc=907) 13.0 mg/dL 2.6-7.2 LIPID [id number] 10:24:00* Test Item Value Reference Range Comments TRIGLYCERIDES (BEAKER) (test nlno=648) 129 mg/dL CHOLESTEROL (BEAKER) (test pfcn=572) 180 mg/dL HDL CHOLESTEROL (BEAKER) (test cvux=383) 55 mg/dL LDL CHOLESTEROL CALCULATED (BEAKER) (test vewh=916) 99 mg/dL Triglyceride Reference Range: Low Risk <150 Borderline 150-199 High Risk 200-499 Very High Risk >=500Cholesterol Reference Range: Low Risk <200 Borderline 200-239 High Risk >240HDL Cholesterol Reference Range: Low Risk >=60 High Risk <40LDL Cholesterol Reference Range: Optimal <100 Near Optimal 100-129 Borderline 130-159 High 160-189 Very High >=190 HEPATIC FUNCTION [id number] 10:24:00* Test Item Value Reference Range Comments TOTAL PROTEIN (BEAKER) (test dfzw=290) 7.2 gm/dL 6.0-8.3 ALBUMIN (BEAKER) (test zjyk=4128) 3.7 g/dL 3.5-5.0 BILIRUBIN TOTAL (BEAKER) (test pvcg=900) 0.4 mg/dL 0.2-1.2 BILIRUBIN DIRECT (BEAKER) (test usyo=498) 0.1 mg/dL 0.1-0.5 ALKALINE PHOSPHATASE (BEAKER) (test oepc=216) 87 U/L 40-150 AST (SGOT) (BEAKER) (test amjm=225) 21 U/L 5-34 ALT (SGPT) (BEAKER) (test dpds=944) 23 U/L 6-55 PROTHROMBIN [id number] 10:18:00* Test Item Value Reference Range Comments PROTIME (BEAKER) (test sejn=277) 13.8 seconds 11.7-14.7 INR (BEAKER) (test vhtj=803) 1.1 <=5.9 RECOMMENDED COUMADIN/WARFARIN INR THERAPY RANGESSTANDARD DOSE: 2.0 - 3.0 Inclu eliseo: PROPHYLAXIS for venous thrombosis, systemic embolization; TREATMENT for arpit ous thrombosis and/or pulmonary embolus.HIGH RISK: Target INR is 2.5-3.5 for pat ients with mechanical heart valves.CBC W/PLT COUNT & AUTO [id number] 10:15:00* Test Item Value Reference Range Comments WHITE BLOOD CELL COUNT (BEAKER) (test nofh=360) 8.9 K/ L 3.5-10.5 RED BLOOD CELL COUNT (BEAKER) (test vqaj=469) 3.84 M/ L 4.63-6.08 HEMOGLOBIN (BEAKER) (test gqrh=468) 10.8 GM/DL 13.7-17.5 HEMATOCRIT (BEAKER) (test lgda=327) 33.5 % 40.1-51.0 MEAN CORPUSCULAR VOLUME (BEAKER) (test swbk=689) 87.2 fL 79.0-92.2 MEAN CORPUSCULAR HEMOGLOBIN (BEAKER) (test fnmd=634) 28.1 pg 25.7-32.2 MEAN CORPUSCULAR HEMOGLOBIN CONC (BEAKER) (test tdtl=324) 32.2 GM/DL 32.3-36.5 RED CELL DISTRIBUTION WIDTH (BEAKER) (test skgx=775) 12.0 % 11.6-14.4 PLATELET COUNT (BEAKER) (test ltxg=578) 175 K/CU MM 150-450 MEAN PLATELET VOLUME (BEAKER) (test ovsk=018) 12.0 fL 9.4-12.4 NUCLEATED RED BLOOD CELLS (BEAKER) (test yqee=702) 0 /100 WBC 0-0 NEUTROPHILS RELATIVE PERCENT (BEAKER) (test xodv=927) 84 % LYMPHOCYTES RELATIVE PERCENT (BEAKER) (test zgvu=828) 7 % MONOCYTES RELATIVE PERCENT (BEAKER) (test rnmc=955) 8 % EOSINOPHILS RELATIVE PERCENT (BEAKER) (test zmgr=656) 2 % BASOPHILS RELATIVE PERCENT (BEAKER) (test tcyp=093) 0 % NEUTROPHILS ABSOLUTE COUNT (BEAKER) (test geud=762) 7.42 K/ L 1.78-5.38 LYMPHOCYTES ABSOLUTE COUNT (BEAKER) (test vmya=787) 0.59 K/ L 1.32-3.57 MONOCYTES ABSOLUTE COUNT (BEAKER) (test ofmx=156) 0.67 K/ L 0.30-0.82 EOSINOPHILS ABSOLUTE COUNT (BEAKER) (test nzlj=123) 0.15 K/ L 0.04-0.54 BASOPHILS ABSOLUTE COUNT (BEAKER) (test aifn=465) 0.03 K/ L 0.01-0.08 IMMATURE GRANULOCYTES-RELATIVE PERCENT (BEAKER) (test qush=7021) 0 % 0-1 POCT-GLUCOSE [id number] 08:10:00* Test Item Value Reference Range Comments POC-GLUCOSE METER (BEAKER) (test ouin=9819) 140 mg/dL 70-110 TESTED AT [address] [address] BASIC METABOLIC [id number] 07:18:00* Test Item Value Reference Range Comments SODIUM (BEAKER) (test kgrb=419) 142 meq/L 136-145 POTASSIUM (BEAKER) (test basq=295) 3.6 meq/L 3.5-5.1 CHLORIDE (BEAKER) (test hmdv=232) 109 meq/L 98-107 CO2 (BEAKER) (test vikl=448) 24 meq/L 22-29 BLOOD UREA NITROGEN (BEAKER) (test knnn=818) 63 mg/dL 7-21 CREATININE (BEAKER) (test rynz=534) 1.87 mg/dL 0.57-1.25 GLUCOSE RANDOM (BEAKER) (test afhu=055) 69 mg/dL 70-105 CALCIUM (BEAKER) (test stqb=012) 8.0 mg/dL 8.4-10.2 EGFR (BEAKER) (test fghd=7558) 36 mL/min/1.73 sq m ESTIMATED GFR IS NOT ACCURATE CREATININE CLEARANCE IN PREDICTING GLOMERULAR FILTRATION RATE. ESTIMATED GFR IS NOT APPLICABLE FOR DIALYSIS PATIENTS. POCT-GLUCOSE [id number] 22:22:00* Test Item Value Reference Range Comments POC-GLUCOSE METER (BEAKER) (test oqfe=5012) 196 mg/dL 70-110 TESTED AT [address] [address] POCT-GLUCOSE [id number] 17:36:00* Test Item Value Reference Range Comments POC-GLUCOSE METER (BEAKER) (test mibu=9564) 115 mg/dL 70-110 TESTED AT [address] [address] POCT-GLUCOSE [id number] 12:36:00* Test Item Value Reference Range Comments POC-GLUCOSE METER (BEAKER) (test rbbw=7755) 148 mg/dL 70-110 TESTED AT [address] [address] POCT-GLUCOSE [id number] 09:08:00* Test Item Value Reference Range Comments POC-GLUCOSE METER (BEAKER) (test svsf=5566) 118 mg/dL 70-110 TESTED AT [address] [address] BASIC METABOLIC [id number] 07:21:00* Test Item Value Reference Range Comments SODIUM (BEAKER) (test wzny=238) 142 meq/L 136-145 POTASSIUM (BEAKER) (test kpiu=004) 3.6 meq/L 3.5-5.1 CHLORIDE (BEAKER) (test jlzc=629) 107 meq/L 98-107 CO2 (BEAKER) (test gdcy=159) 24 meq/L 22-29 BLOOD UREA NITROGEN (BEAKER) (test tlby=952) 60 mg/dL 7-21 CREATININE (BEAKER) (test bblj=820) 2.10 mg/dL 0.57-1.25 GLUCOSE RANDOM (BEAKER) (test fkwa=851) 72 mg/dL 70-105 CALCIUM (BEAKER) (test hwto=320) 8.2 mg/dL 8.4-10.2 EGFR (BEAKER) (test yyaq=0395) 32 mL/min/1.73 sq m ESTIMATED GFR IS NOT ACCURATE CREATININE CLEARANCE IN PREDICTING GLOMERULAR FILTRATION RATE. ESTIMATED GFR IS NOT APPLICABLE FOR DIALYSIS PATIENTS. BLOOD [id number] 00:00:00* Test Item Value Reference Range Comments CULTURE (BEAKER) (test pobi=9547) No growth in 5 days BLOOD [id number] 00:00:00* Test Item Value Reference Range Comments CULTURE (BEAKER) (test apfr=9983) No growth in 5 days POCT-GLUCOSE [id number] 21:49:00* Test Item Value Reference Range Comments POC-GLUCOSE METER (BEAKER) (test fdgn=7847) 156 mg/dL 70-110 TESTED AT [address] [address] POCT-GLUCOSE [id number] 20:53:00* Test Item Value Reference Range Comments POC-GLUCOSE METER (BEAKER) (test rvzb=8512) 133 mg/dL 70-110 TESTED AT [address] [address] POCT-GLUCOSE [id number] 17:45:00* Test Item Value Reference Range Comments POC-GLUCOSE METER (BEAKER) (test gvyv=3868) 147 mg/dL 70-110 TESTED AT [address] [address] POCT-GLUCOSE [id number] 12:26:00* Test Item Value Reference Range Comments POC-GLUCOSE METER (BEAKER) (test zgov=1036) 190 mg/dL 70-110 TESTED AT [address] [address] POCT-GLUCOSE [id number] 07:50:00* Test Item Value Reference Range Comments POC-GLUCOSE METER (BEAKER) (test ttjz=7798) 88 mg/dL 70-110 TESTED AT [address] [address] BASIC METABOLIC [id number] 07:03:00* Test Item Value Reference Range Comments SODIUM (BEAKER) (test ldrq=960) 138 meq/L 136-145 POTASSIUM (BEAKER) (test bmiw=909) 3.5 meq/L 3.5-5.1 CHLORIDE (BEAKER) (test gqmp=859) 102 meq/L 98-107 CO2 (BEAKER) (test zatk=050) 26 meq/L 22-29 BLOOD UREA NITROGEN (BEAKER) (test bqlh=612) 56 mg/dL 7-21 CREATININE (BEAKER) (test grjm=407) 2.07 mg/dL 0.57-1.25 GLUCOSE RANDOM (BEAKER) (test frxv=287) 124 mg/dL 70-105 CALCIUM (BEAKER) (test bfgc=064) 8.7 mg/dL 8.4-10.2 EGFR (BEAKER) (test ygcg=9295) 32 mL/min/1.73 sq m ESTIMATED GFR IS NOT ACCURATE CREATININE CLEARANCE IN PREDICTING GLOMERULAR FILTRATION RATE. ESTIMATED GFR IS NOT APPLICABLE FOR DIALYSIS PATIENTS. POCT-GLUCOSE [id number] 22:03:00* Test Item Value Reference Range Comments POC-GLUCOSE METER (BEAKER) (test wewr=6029) 136 mg/dL 70-110 TESTED AT [address] [address] POCT-GLUCOSE [id number] 17:12:00* Test Item Value Reference Range Comments POC-GLUCOSE METER (BEAKER) (test bkiu=2463) 140 mg/dL 70-110 TESTED AT [address] [address] POCT-GLUCOSE [id number] 10:41:00* Test Item Value Reference Range Comments POC-GLUCOSE METER (BEAKER) (test ggys=3901) 227 mg/dL 70-110 TESTED AT [address] [address] POCT-GLUCOSE [id number] 08:49:00* Test Item Value Reference Range Comments POC-GLUCOSE METER (BEAKER) (test tstp=0375) 181 mg/dL 70-110 TESTED AT [address] [address] BASIC METABOLIC [id number] 06:12:00* Test Item Value Reference Range Comments SODIUM (BEAKER) (test fhxp=321) 142 meq/L 136-145 POTASSIUM (BEAKER) (test yhyg=239) 3.5 meq/L 3.5-5.1 CHLORIDE (BEAKER) (test silv=289) 105 meq/L 98-107 CO2 (BEAKER) (test dyun=333) 26 meq/L 22-29 BLOOD UREA NITROGEN (BEAKER) (test hywi=967) 49 mg/dL 7-21 CREATININE (BEAKER) (test kczj=850) 1.95 mg/dL 0.57-1.25 GLUCOSE RANDOM (BEAKER) (test kziv=939) 91 mg/dL 70-105 CALCIUM (BEAKER) (test mowu=135) 8.8 mg/dL 8.4-10.2 EGFR (BEAKER) (test jfoo=3711) 35 mL/min/1.73 sq m ESTIMATED GFR IS NOT ACCURATE CREATININE CLEARANCE IN PREDICTING GLOMERULAR FILTRATION RATE. ESTIMATED GFR IS NOT APPLICABLE FOR DIALYSIS PATIENTS. POCT-GLUCOSE [id number] 00:24:00* Test Item Value Reference Range Comments POC-GLUCOSE METER (BEAKER) (test wkal=0475) 205 mg/dL 70-110 TESTED AT [address] [address] POCT-GLUCOSE [id number] 23:54:00* Test Item Value Reference Range Comments POC-GLUCOSE METER (BEAKER) (test ivpw=0179) 228 mg/dL 70-110 TESTED AT [address] [address] POCT-GLUCOSE [id number] 17:45:00* Test Item Value Reference Range Comments POC-GLUCOSE METER (BEAKER) (test xjqn=3966) 99 mg/dL 70-110 TESTED AT [place] [id number] [facility] [address] POCT-GLUCOSE [id number] 11:33:00* Test Item Value Reference Range Comments POC-GLUCOSE METER (BEAKER) (test agar=1436) 292 mg/dL 70-110 TESTED AT [address] [address] POCT-GLUCOSE [id number] 08:13:00* Test Item Value Reference Range Comments POC-GLUCOSE METER (BEAKER) (test ieha=9498) 198 mg/dL 70-110 TESTED AT [address] [address] BASIC METABOLIC [id number] 06:36:00* Test Item Value Reference Range Comments SODIUM (BEAKER) (test ujqw=017) 138 meq/L 136-145 POTASSIUM (BEAKER) (test kscf=379) 3.4 meq/L 3.5-5.1 CHLORIDE (BEAKER) (test tefl=242) 103 meq/L 98-107 CO2 (BEAKER) (test nfke=541) 24 meq/L 22-29 BLOOD UREA NITROGEN (BEAKER) (test qjkw=001) 48 mg/dL 7-21 CREATININE (BEAKER) (test wblx=618) 2.00 mg/dL 0.57-1.25 GLUCOSE RANDOM (BEAKER) (test azma=095) 154 mg/dL 70-105 CALCIUM (BEAKER) (test ejnr=160) 8.7 mg/dL 8.4-10.2 EGFR (BEAKER) (test ebga=8543) 34 mL/min/1.73 sq m ESTIMATED GFR IS NOT ACCURATE CREATININE CLEARANCE IN PREDICTING GLOMERULAR FILTRATION RATE. ESTIMATED GFR IS NOT APPLICABLE FOR DIALYSIS PATIENTS. B-TYPE NATRIURETIC FACTOR (BNP)2017-09-11 06:32:00* Test Item Value Reference Range Comments B-TYPE NATRIURETIC PEPTIDE (BEAKER) (test oeic=710) 1773 pg/mL 0-100 POCT-GLUCOSE [id number] 21:10:00* Test Item Value Reference Range Comments POC-GLUCOSE METER (BEAKER) (test fvix=8135) 251 mg/dL 70-110 TESTED AT [address] [address] RESPIRATORY PANEL [id number] 17:38:00* Test Item Value Reference Range Comments HUMAN METAPNEUMOVIRUS (BEAKER) (test qqxh=0638) Not detected Not detected, Inconclusive RHINOVIRUS (BEAKER) (test eswn=9079) Not detected Not detected, Inconclusive INFLUENZA A (BEAKER) (test qblq=8751) Not detected Not detected, Inconclusive INFLUENZA A SUBTYPE H1 (BEAKER) (test ngnk=1123) Not detected Not detected, Inconclusive INFLUENZA A SUBTYPE H3 (BEAKER) (test xulq=5379) Not detected Not detected, Inconclusive INFLUENZA A SUBTYPE H1-2009 (BEAKER) (test eitj=8278) Not detected Not detected, Inconclusive INFLUENZA B (BEAKER) (test yssc=5309) Not detected Not detected, Inconclusive RESPIRATORY SYNCYTIAL VIRUS (BEAKER) (test jfef=1670) Not detected Not detected, Inconclusive PARAINFLUENZA VIRUS 1 (BEAKER) (test zodr=8064) Not detected Not detected, Inconclusive PARAINFLUENZA VIRUS 2 (BEAKER) (test nmgl=2376) Not detected Not detected, Inconclusive PARAINFLUENZA VIRUS 3 (BEAKER) (test ctso=0867) Not detected Not detected, Inconclusive PARAINFLUENZA VIRUS 4 (BEAKER) (test mdvw=3194) Not detected Not detected, Inconclusive ADENOVIRUS (BEAKER) (test jzee=2898) Not detected Not detected, Inconclusive CORONAVIRUS 229E (BEAKER) (test nsre=9532) Not detected Not detected, Inconclusive CORONAVIRUS HKU1 (BEAKER) (test lcju=0373) Not detected Not detected, Inconclusive CORONAVIRUS NL63 (BEAKER) (test okkn=6328) Not detected Not detected, Inconclusive CORONAVIRUS OC43 (BEAKER) (test vmdk=6953) Not detected Not detected, Inconclusive BORDETELLA PERTUSSIS (BEAKER) (test fzzq=9307) Not detected Not detected, Inconclusive CHLAMYDOPHILA PNEUMONIAE (BEAKER) (test akob=0931) Not detected Not detected, Inconclusive MYCOPLASMA PNEUMONIAE (BEAKER) (test fimp=9161) Not detected Not detected, Inconclusive POCT-GLUCOSE [id number] 17:31:00* Test Item Value Reference Range Comments POC-GLUCOSE METER (BEAKER) (test cvqz=9837) 193 mg/dL 70-110 TESTED AT [address] [address] CLOSTRIDIUM DIFFICILE TOXIN [id number] 17:09:00* Test Item Value Reference Range Comments CLOSTRIDIUM DIFFICILE TOXIN, PCR (SONJA) (test yhgv=5197) Not Detected Not Detected This qualitative real-time polymerase chain reaction assay detects the tcdB gene , encoded on the C.difficile pathogenicity locus (PaLoc). The product of tcdB, toxin B, is a cytotoxin essential for causing C.difficile-associated disease (CD AD) and is found in virtually all toxigenic C.difficile.This assay is performed for patients suspected of having either community-acquired or nosocomial CDAD. Accordingly, only symptomatic patients should be tested and formed stools will b e rejected unless ileus is present (i.e., specified when ordering). Patients ma y be colonized with toxigenic C.difficile strains not causing active disease; th erefore, clinical correlation is needed when deciding how to manage patients wit h a positive test result.The assay has not been validated as a test of cure as a mplifiable nucleic acid may persist after effective treatment; therefore, follow -up testing of a positive result is not recommended.PET, CARDIAC PET, METABOLISM 2017-09-10 15:48:00Reason for exam:->significant MV disease, assess for viabilityFINAL REPORT PROCEDURE: MYOCARDIAL METABOLISM PET IMAGING with Rest MYOCARDIAL PERFUSION PET IMAGING\XA9\ CPT CODE: 86709, 50647 INDICATION: CAD, assess for viability HISTORY: Cardiac risk factors: CAD, CHF, diabetes, hypertension, dyslipidemia, CVA. Current cardiovascular-related medications: Aspirin, Plavix, hydralazine, captopril, Lasix. PROTOCOL: Limited low-dose CT imaging was performed for attenuation correction. 40.1 mCi of Rb-82 chloride was injected iv at rest, and gated PET (positron emission tomography) images were obtained. After appropriate dextrose/insulin administration, 10.7 mCi of F-18 FDG was injected iv at rest; limited low-dose CT imaging was repeated; and PET images were obtained. PERFUSION IMAGING FINDINGS: Study quality is good. Images obtained after Rb-82 injection show moderately decreased radiotracer uptake at the mid inferior to apical inferior wall. There is also a mild decrease in radiotracer uptake at the mid anterior wall. LV volume appears increased. RV volume appears increased. Gated images obtained at rest show severely hypokinetic wall motion. LVEF at rest is 19%. METABOLIC IMAGING FINDINGS: Study quality is good. Images obtained after F-18 FDG injection show moderate decrease in glucose uptake at the mid inferior to apical inferior wall. There is also a moderate decrease in glucose uptake at the mid anterior wall. IMPRESSION: 1. Abnormal study. 2. Resting i maging was performed for cardiac perfusion and metabolism. 3. Abnormal myocardi al perfusion. There is a moderate severity, medium size, perfusion defect in the mid inferior to the apical inferior wall normal LV. There is also a moderate se verity, small size, perfusion defect at the mid anterior wall. 4. Markedly decre ased resting LV function. 5. Abnormal cardiac metabolism. There is a moderate s everity, medium size, defect of glucose metabolism in the mid inferior to apical inferior LV as well as the mid anterior LV. 6. Combination of perfusion and me tabolic images show non-viable myocardium at both the mid to inferior apical LV wall and the mid anterior LV wall. 7. Extracardiac tracer distribution is vanessa l. 8. Compared to previous [facility] study on 01/23/2013 the previously identified in ferior wall defect is once again demonstrated and the LVEF has now decreased. S igned: Artis Spence MDReport Verified Date/Time: 09/10/2017 15:48:16 Reading L ocation: [address] [facility] Reading Room -GLUCOSE [id number] 12:56:00* Test Item Value Reference Range Comments POC-GLUCOSE METER (BEAKER) (test lvvl=6304) 122 mg/dL 70-110 TESTED AT [address] [address] POCT-GLUCOSE [id number] 10:28:00* Test Item Value Reference Range Comments POC-GLUCOSE METER (BEAKER) (test exbd=4797) 240 mg/dL 70-110 TESTED AT [address] [address] POCT-GLUCOSE [id number] 09:35:00* Test Item Value Reference Range Comments POC-GLUCOSE METER (BEAKER) (test lydb=2245) 164 mg/dL 70-110 TESTED AT [address] [address] COMPREHENSIVE METABOLIC [id number] 07:03:00* Test Item Value Reference Range Comments TOTAL PROTEIN (BEAKER) (test ovmr=904) 5.9 gm/dL 6.0-8.3 ALBUMIN (BEAKER) (test vhey=2935) 3.1 g/dL 3.5-5.0 ALKALINE PHOSPHATASE (BEAKER) (test wwhq=025) 65 U/L 40-150 BILIRUBIN TOTAL (BEAKER) (test kyzo=958) 0.5 mg/dL 0.2-1.2 SODIUM (BEAKER) (test ctsb=670) 138 meq/L 136-145 POTASSIUM (BEAKER) (test tatd=083) 3.7 meq/L 3.5-5.1 CHLORIDE (BEAKER) (test durw=778) 105 meq/L 98-107 CO2 (BEAKER) (test suqz=501) 23 meq/L 22-29 BLOOD UREA NITROGEN (BEAKER) (test oevq=459) 48 mg/dL 7-21 CREATININE (BEAKER) (test zaio=178) 2.01 mg/dL 0.57-1.25 GLUCOSE RANDOM (BEAKER) (test cpcs=156) 150 mg/dL 70-105 CALCIUM (BEAKER) (test mgen=719) 8.4 mg/dL 8.4-10.2 AST (SGOT) (BEAKER) (test kvca=521) 22 U/L 5-34 ALT (SGPT) (BEAKER) (test bfny=861) 17 U/L 6-55 EGFR (BEAKER) (test zjxn=8916) 34 mL/min/1.73 sq m ESTIMATED GFR IS NOT ACCURATE CREATININE CLEARANCE IN PREDICTING GLOMERULAR FILTRATION RATE. ESTIMATED GFR IS NOT APPLICABLE FOR DIALYSIS PATIENTS. BASIC METABOLIC [id number] 07:03:00* Test Item Value Reference Range Comments SODIUM (BEAKER) (test ecjr=020) 138 meq/L 136-145 POTASSIUM (BEAKER) (test xadg=881) 3.7 meq/L 3.5-5.1 CHLORIDE (BEAKER) (test ztjr=074) 105 meq/L 98-107 CO2 (BEAKER) (test blrj=339) 23 meq/L 22-29 BLOOD UREA NITROGEN (BEAKER) (test pgea=163) 48 mg/dL 7-21 CREATININE (BEAKER) (test fncx=444) 2.01 mg/dL 0.57-1.25 GLUCOSE RANDOM (BEAKER) (test vgpg=794) 150 mg/dL 70-105 CALCIUM (BEAKER) (test vglf=663) 8.4 mg/dL 8.4-10.2 EGFR (BEAKER) (test jkhp=8766) 34 mL/min/1.73 sq m ESTIMATED GFR IS NOT ACCURATE CREATININE CLEARANCE IN PREDICTING GLOMERULAR FILTRATION RATE. ESTIMATED GFR IS NOT APPLICABLE FOR DIALYSIS PATIENTS. POCT-GLUCOSE [id number] 22:23:00* Test Item Value Reference Range Comments POC-GLUCOSE METER (BEAKER) (test pggg=0070) 274 mg/dL 70-110 TESTED AT [facility] [address] [facility] [address] RESPIRATORY PANEL [id number] 20:12:00* Test Item Value Reference Range Comments HUMAN METAPNEUMOVIRUS (BEAKER) (test ndcn=4286) Not detected Not detected, Inconclusive RHINOVIRUS (BEAKER) (test atrh=4932) Not detected Not detected, Inconclusive INFLUENZA A (BEAKER) (test iizp=5249) Not detected Not detected, Inconclusive INFLUENZA A SUBTYPE H1 (BEAKER) (test vsoc=2198) Not detected Not detected, Inconclusive INFLUENZA A SUBTYPE H3 (BEAKER) (test bztp=0213) Not detected Not detected, Inconclusive INFLUENZA A SUBTYPE H1-2009 (BEAKER) (test jexm=2786) Not detected Not detected, Inconclusive INFLUENZA B (BEAKER) (test aarv=2430) Not detected Not detected, Inconclusive RESPIRATORY SYNCYTIAL VIRUS (BEAKER) (test ghyw=4539) Not detected Not detected, Inconclusive PARAINFLUENZA VIRUS 1 (BEAKER) (test xucw=7374) Not detected Not detected, Inconclusive PARAINFLUENZA VIRUS 2 (BEAKER) (test dwde=6128) Not detected Not detected, Inconclusive PARAINFLUENZA VIRUS 3 (BEAKER) (test jcjn=2192) Not detected Not detected, Inconclusive PARAINFLUENZA VIRUS 4 (BEAKER) (test jfyk=6675) Not detected Not detected, Inconclusive ADENOVIRUS (BEAKER) (test tafm=0038) Not detected Not detected, Inconclusive CORONAVIRUS 229E (BEAKER) (test fxns=9449) Not detected Not detected, Inconclusive CORONAVIRUS HKU1 (BEAKER) (test rkjw=4433) Not detected Not detected, Inconclusive CORONAVIRUS NL63 (BEAKER) (test nagr=0518) Not detected Not detected, Inconclusive CORONAVIRUS OC43 (BEAKER) (test rtbr=6280) Not detected Not detected, Inconclusive BORDETELLA PERTUSSIS (BEAKER) (test vocc=4322) Not detected Not detected, Inconclusive CHLAMYDOPHILA PNEUMONIAE (BEAKER) (test ntrm=4213) Not detected Not detected, Inconclusive MYCOPLASMA PNEUMONIAE (BEAKER) (test qmxv=5585) Not detected Not detected, Inconclusive URINALYSIS W/ [id number] 20:11:00* Test Item Value Reference Range Comments COLOR (BEAKER) (test qovu=986) Yellow CLARITY (BEAKER) (test uymh=318) Clear SPECIFIC GRAVITY UA (BEAKER) (test mrri=608) 1.015 1.001-1.035 PH UA (BEAKER) (test bmfm=630) 5.5 5.0-8.0 PROTEIN UA (BEAKER) (test jyex=338) 200 mg/dL Negative GLUCOSE UA (BEAKER) (test kvzk=534) Negative Negative KETONES UA (BEAKER) (test hoac=241) Negative Negative BILIRUBIN UA (BEAKER) (test wiwv=609) Negative Negative BLOOD UA (BEAKER) (test jpnn=783) Trace Negative NITRITE UA (BEAKER) (test loui=375) Negative Negative LEUKOCYTE ESTERASE UA (BEAKER) (test rpnx=192) Negative Negative UROBILINOGEN UA (BEAKER) (test rgxb=160) 0.2 mg/dL 0.2-1.0 RBC UA (BEAKER) (test ckiu=754) 6 /HPF WBC UA (BEAKER) (test bzgx=342) 1 /HPF MUCUS (BEAKER) (test zjmy=4128) Rare SOURCE(BEAKER) (test nzkn=3565) SODIUM, RANDOM [id number] 19:56:00* Test Item Value Reference Range Comments SODIUM URINE (BEAKER) (test ufcu=117) 45 meq/L Reference Range: No NormalsBASIC METABOLIC [id number] 17:49:00* Test Item Value Reference Range Comments SODIUM (BEAKER) (test aqsg=357) 139 meq/L 136-145 POTASSIUM (BEAKER) (test etkw=417) 4.3 meq/L 3.5-5.1 CHLORIDE (BEAKER) (test mkvm=749) 105 meq/L 98-107 CO2 (BEAKER) (test luuj=616) 24 meq/L 22-29 BLOOD UREA NITROGEN (BEAKER) (test uzpg=216) 48 mg/dL 7-21 CREATININE (BEAKER) (test ccgy=120) 2.33 mg/dL 0.57-1.25 GLUCOSE RANDOM (BEAKER) (test jivl=531) 157 mg/dL 70-105 CALCIUM (BEAKER) (test pqpj=950) 8.7 mg/dL 8.4-10.2 EGFR (BEAKER) (test kqtk=3875) 28 mL/min/1.73 sq m ESTIMATED GFR IS NOT ACCURATE CREATININE CLEARANCE IN PREDICTING GLOMERULAR FILTRATION RATE. ESTIMATED GFR IS NOT APPLICABLE FOR DIALYSIS PATIENTS. U/S, RENAL WITH [id number] 16:55:00Renal US with doppler and post void bladder scanReason for exam:->Kaylin on ckd with h/o JDAA s/p stentFINAL REPORT History: Acute kidney injury on chronic kidney disease, history of renal arterial stenosis Comparison: None Discussion : Transverse and longitudinal images of the kidneys were performed bilaterally as well as color Doppler and spectral interrogation of the renal arteries as well as the arcuate arteries with calculation of acceleration times, acceleration indices and resistive indices. Of note, the examination is limited secondary to the p atient's body habitus as well as shadowing bowel gas. The right kidney measures 11.5 x 5.0 x 5.4 cm and the left kidney measures 10.3 x 5.6 x 4.2 cm. There is n o hydronephrosis, masses, cysts or calculi. The acceleration time of the right u pper, and mid poles are 0.08, and 0.08 seconds. The resistive index of the right upper and mid poles of the kidney are 0.70, and 0.73. The acceleration index in the right upper and mid poles are 1.4 and 2.5 m/s. Of note, due to the limitati ons of the exam, acceptable waveforms for Doppler interrogation were unable to b e obtained from the lower pole of the right kidney. The acceleration time of the left upper, mid and lower poles are 0.07, 0.05 and 0.05 seconds. The resistive index of the left upper, middle and lower poles of the kidney are 0.66, 0.79 and 0.65. The acceleration index in the right upper, middle and lower poles are 1.0, 5.5, and 1.3 m/sec. The ratio of the peak systolic velocity of the main renal artery to the aorta on the right side and 0.64 and the left side is 0.52 The poo rly distended bladder is limited in evaluation but there is no definite bladder wall thickening, masses or stones. IMPRESSION: 1. Examination limited secondary to the patient's body habitus and shadowing bowel gas. 2. No definite Doppler fi ndings to suggest renal artery stenosis in the visualized portions of the kidney s. 3. Nonspecifically elevated resistive indices of the visualized kidneys, sugg estive of underlying renal disease. Signed: Kortney Lowe Verified Date/ Time: 09/09/2017 16:55:45 Reading Location: [place] [id number] Ultrasound Reading Kylie m UENZA A H1N1 [id number] 15:15:00* Test Item Value Reference Range Comments INFLUENZA A RNA (BEAKER) (test emba=8548) Not Detected Not Detected, Inconclusive NOVEL H1N1 RNA (BEAKER) (test imnz=5079) Not Detected Not Detected, Inconclusive These assays were performed by real-time RT-PCR (frog farmer-PCR) utilizing fluorogenic hydrolysis probe technology for the detection of human Influenza A viruses and t he differential detection of novel H1N1 Influenza virus in respiratory specimens . The test is composed of (1) an RNA extraction from patient specimen, and (2) r RT-PCR amplification and detection with human Influenza A and novel X5I0-smlktkd c primers and probes. A well-conserved region of the Influenza A matrix gene is targeted in one set of reactions to identify both seasonal Influenza A and novel H1N1 Influenza virus in the specimen. In addition, a specific region of the he magglutinin gene is targeted to differentiate the novel H1N1 virus from the seas onal human influenza. An internal control is used to confirm PCR amplification. Genetic variation and other factors can affect the accuracy of nucleic acid osiris ting; therefore, the results should be interpreted in light of clinical data. Th is test was developed and its performance characteristics determined by the [facility] Pathology Department, Section of Molecular Pathology. It has not been cleared or approved by the U.S. Food and Drug Administration (F DA). Since FDA approval is not required for clinical use of the test, validatio n was done as required by The Clinical Laboratory Amendments of 1988.These assay s were performed by real-time RT-PCR (frog farmer-PCR) utilizing fluorogenic hydrolysis probe technology for the detection of human Influenza A viruses and the differ tial detection of novel H1N1 Influenza virus in respiratory specimens. The test is composed of (1) an RNA extraction from patient specimen, and (2) frog farmer-PCR ampl ification and detection with human Influenza A and novel [id number]-[id number] primers a nd probes. A well-conserved region of the Influenza A matrix gene is targeted in one set of reactions to identify both seasonal Influenza A and novel H1N1 Influ heather virus in the specimen. In addition, a specific region of the hemagglutinin gene is targeted to differentiate the novel H1N1 virus from the seasonal human influenza. An internal control is used to confirm PCR amplification. Genetic va riation and other factors can affect the accuracy of nucleic acid testing; there fore, the results should be interpreted in light of clinical data. This test was developed and its performance characteristics determined by the [facility] Pathology Department, Section of Molecular Pathology. It has not been cleared or approved by the U.S. Food and Drug Administration (FDA). Since FDA approval is not required for clinical use of the test, validation was done as required by The Clinical Laboratory Amendments of 1988.POCT-GLUCOSE METER 2017-09-09 12:22:00* Test Item Value Reference Range Comments POC-GLUCOSE METER (BEAKER) (test ymdz=5972) 156 mg/dL 70-110 TESTED AT [place] [address] HEMOGLOBIN [id number] 10:05:00* Test Item Value Reference Range Comments HEMOGLOBIN A1C (BEAKER) (test laev=104) 7.8 % 4.3-6.1 POCT-GLUCOSE [id number] 08:54:00* Test Item Value Reference Range Comments POC-GLUCOSE METER (BEAKER) (test fsku=0719) 181 mg/dL 70-110 TESTED AT [address] [address] POCT-GLUCOSE [id number] 23:51:00* Test Item Value Reference Range Comments POC-GLUCOSE METER (BEAKER) (test zyfn=1401) 214 mg/dL 70-110 TESTED AT [facility] [address] [facility] [address] RAPID INFLUENZA A&B [id number] 19:35:00* Test Item Value Reference Range Comments RAPID INFLUENZA A AG (BEAKER) (test wbky=3446) Negative Negative, Inconclusive RAPID INFLUENZA B AG (BEAKER) (test hfqg=2486) Negative Negative, Inconclusive RAPID STREP A [id number] 19:34:00* Test Item Value Reference Range Comments STREP A ANTIGEN (BEAKER) (test zkiv=013) Negative Negative POCT-LACTIC ACID, [id number] 18:58:00* Test Item Value Reference Range Comments POC-LACTIC ACID, VENOUS (BEAKER) (test gcsp=1612) 0.7 mmol/L 0.9-1.7 TESTED AT [facility] [address] [facility] [address] CREATINE KINASE (CK), TOTAL AND [id number] 18:54:00* Test Item Value Reference Range Comments CREATINE KINASE TOTAL (BEAKER) (test miij=863) 192 U/L 29-200 CREATINE KINASE-MB (BEAKER) (test lmru=610) 2.8 ng/mL 0.0-6.6 CREATINE KINASE-MB INDEX (BEAKER) (test socr=817) 1.5 % CK-MB Reference Range:<6.7 Normal6.7-10.0 Borderline>10.0 Abnormal TROPONIN [id number] 18:54:00* Test Item Value Reference Range Comments TROPONIN I (BEAKER) (test ytru=130) 0.04 ng/mL 0.00-0.03 Troponin I (TnI) levels must be interpreted in the context of the presenting sym ptoms and the clinical findings. Elevated TnI levels indicate myocardial damage, but are not specific for ischemic heart disease. Elevated TnI levels are seen in patients with other cardiac conditions (including myocarditis and congestive h eart failure), and slight TnI elevations occur in patients with other conditions , including sepsis, renal failure, acidosis, acute neurological disease, and per sistent tachyarrhythmia.B-TYPE NATRIURETIC FACTOR (BNP)2017-09-08 18:54:00* Test Item Value Reference Range Comments B-TYPE NATRIURETIC PEPTIDE (BEAKER) (test oqfs=160) 1319 pg/mL 0-100 BASIC METABOLIC [id number] 18:49:00* Test Item Value Reference Range Comments SODIUM (BEAKER) (test zjxz=534) 140 meq/L 136-145 POTASSIUM (BEAKER) (test jymb=281) 5.3 meq/L 3.5-5.1 CHLORIDE (BEAKER) (test zmmr=397) 106 meq/L 98-107 CO2 (BEAKER) (test jfma=403) 23 meq/L 22-29 BLOOD UREA NITROGEN (BEAKER) (test vzii=689) 44 mg/dL 7-21 CREATININE (BEAKER) (test pakq=245) 2.33 mg/dL 0.57-1.25 GLUCOSE RANDOM (BEAKER) (test ielz=749) 184 mg/dL 70-105 CALCIUM (BEAKER) (test jhwp=466) 8.9 mg/dL 8.4-10.2 EGFR (BEAKER) (test pzcp=8685) 28 mL/min/1.73 sq m ESTIMATED GFR IS NOT ACCURATE CREATININE CLEARANCE IN PREDICTING GLOMERULAR FILTRATION RATE. ESTIMATED GFR IS NOT APPLICABLE FOR DIALYSIS PATIENTS. [id number] 18:47:00* Test Item Value Reference Range Comments MAGNESIUM (BEAKER) (test knne=431) 1.9 mg/dL 1.6-2.6 [id number] 18:37:00* Test Item Value Reference Range Comments PROTIME (BEAKER) (test qaue=660) 13.3 seconds 11.7-14.7 INR (BEAKER) (test apep=031) 1.0 <=5.9 PARTIAL THROMBOPLASTIN TIME (BEAKER) (test krzz=366) 28.1 seconds 22.5-36.0 RECOMMENDED COUMADIN/WARFARIN INR THERAPY RANGESSTANDARD DOSE: 2.0 - 3.0 Inclu eliseo: PROPHYLAXIS for venous thrombosis, systemic embolization; TREATMENT for arpit ous thrombosis and/or pulmonary embolus.HIGH RISK: Target INR is 2.5-3.5 for pat ients with mechanical heart valves.CBC W/PLT COUNT & AUTO [id number] 18:28:00* Test Item Value Reference Range Comments WHITE BLOOD CELL COUNT (BEAKER) (test gsyk=548) 10.3 K/ L 3.5-10.5 RED BLOOD CELL COUNT (BEAKER) (test ycfu=660) 3.80 M/ L 4.63-6.08 HEMOGLOBIN (BEAKER) (test xlfe=508) 10.1 GM/DL 13.7-17.5 HEMATOCRIT (BEAKER) (test unzw=258) 33.8 % 40.1-51.0 MEAN CORPUSCULAR VOLUME (BEAKER) (test fwib=282) 88.9 fL 79.0-92.2 MEAN CORPUSCULAR HEMOGLOBIN (BEAKER) (test xdqg=649) 26.6 pg 25.7-32.2 MEAN CORPUSCULAR HEMOGLOBIN CONC (BEAKER) (test fban=954) 29.9 GM/DL 32.3-36.5 RED CELL DISTRIBUTION WIDTH (BEAKER) (test hnjm=057) 12.4 % 11.6-14.4 PLATELET COUNT (BEAKER) (test efxw=340) 164 K/CU MM 150-450 MEAN PLATELET VOLUME (BEAKER) (test okfg=181) 11.9 fL 9.4-12.4 NUCLEATED RED BLOOD CELLS (BEAKER) (test lybo=586) 0 /100 WBC 0-0 NEUTROPHILS RELATIVE PERCENT (BEAKER) (test ylcp=371) 93 % LYMPHOCYTES RELATIVE PERCENT (BEAKER) (test bcqo=350) 2 % MONOCYTES RELATIVE PERCENT (BEAKER) (test nihe=367) 4 % EOSINOPHILS RELATIVE PERCENT (BEAKER) (test ixas=433) 1 % BASOPHILS RELATIVE PERCENT (BEAKER) (test hkcb=094) 0 % NEUTROPHILS ABSOLUTE COUNT (BEAKER) (test ctjq=509) 9.55 K/ L 1.78-5.38 LYMPHOCYTES ABSOLUTE COUNT (BEAKER) (test zjxj=144) 0.23 K/ L 1.32-3.57 MONOCYTES ABSOLUTE COUNT (BEAKER) (test jqie=703) 0.43 K/ L 0.30-0.82 EOSINOPHILS ABSOLUTE COUNT (BEAKER) (test epme=515) 0.06 K/ L 0.04-0.54 BASOPHILS ABSOLUTE COUNT (BEAKER) (test vrab=503) 0.01 K/ L 0.01-0.08 IMMATURE GRANULOCYTES-RELATIVE PERCENT (BEAKER) (test vplb=1882) 0 % 0-1 RAD, CHEST, 1 VIEW, NON [id number] 18:23:00Reason for exam:->SHORTNESS OF BREATHReason for exam:->CHEST PAINReason for exam:->FEVERFINAL REPORT Comparison: 06/09/2015 TECHNIQUE: Single view of the chest FINDINGS: There are mildly increased interstitial markings bilaterally suggestive of vascular congestion. Cardiac silhouette is enlarged. Aortic c alcifications are seen. Left-sided pacing device noted. No acute skeletal abnorm ality. Signed: Leo Burrows [facility] Verified Date/Time: 09/08/2017 18:23:30 Lizeth delgado Location: [facility] B1 [id number] Consult Reading Room
[2018-10-15 14:05] VITALS: BP 149/82
--- NOTE | 2018-10-22 14:28 | Operative Report ---
DATE OF PROCEDURE: October 15, 2018 PREOPERATIVE DIAGNOSIS: Phimosis. POSTOPERATIVE DIAGNOSIS: Phimosis. PROCEDURE PERFORMED: Circumcision. ANESTHESIA: General anesthesia. ESTIMATED BLOOD LOSS: Minimal. INDICATIONS: Mr. Hussain Swain is a 67-year-old gentleman with a history of phimosis. He now presents for definitive surgical management of this problem. PROCEDURE IN DETAIL: The patient was brought into the operating room and placed in the supine position. After administration of general anesthesia, was prepped and draped in the usual sterile fashion. With the preputial skin in its normal anatomical position, a circumferential incision was made at the level of the guerra. The foreskin was then retracted with moderate difficulty, and a 2nd parallel circumferential incision was made 5 mm proximal to the guerra. The intervening tissue between these 2 incisions was removed and hemostasis obtained using electrocautery device. Once adequate hemostasis was secured, the skin edges were reapproximated and closed using interrupted chromic sutures. The wound was then cleaned and dried, and covered with Mastisol and a circumferential Tegaderm dressing. A penile block was performed using 0.25% plain Marcaine. Anesthesia was reversed, and the patient was transferred to a bed and taken to the postanesthesia care unit in good condition. Of note, the needle and instrument count were correct at the conclusion of the case. Job#: [id number] DC
== END | disposition home or self-care (01) ==
LOC: OR 06:55
PROVIDERS: ATTEND Urology
DX: N47.1 Phimosis (principal); N32.0 Bladder-neck obstruction; I13.0 Hypertensive heart and chronic kidney disease with heart failure and stage 1 through stage 4 chronic kidney disease, or unspecified chronic kidney disease; I50.9 Heart failure, unspecified; N18.9 Chronic kidney disease, unspecified; E11.22 Type 2 diabetes mellitus with diabetic chronic kidney disease; I25.5 Ischemic cardiomyopathy; I25.10 Atherosclerotic heart disease of native coronary artery without angina pectoris; Z95.5 Presence of coronary angioplasty implant and graft; Z01.810 Encounter for preprocedural cardiovascular examination; Z01.812 Encounter for preprocedural laboratory examination; Z01.818 Encounter for other preprocedural examination; Z79.02 Long term (current) use of antithrombotics/antiplatelets; Z79.82 Long term (current) use of aspirin; Z95.0 Presence of cardiac pacemaker
CPT/HCPCS: 36415 ×2; 54161; 71046; 80048; 82948; 85025; 88304; 93005; J0696; J2001; J2704